=== PATIENT | female | born 1940 | race Caucasian/White ===

== ENCOUNTER 2018-05-19 14:22 | Inpatient (IN) ==
[2018-05-21] MEDS ORDERED: Nitroglycerin 0.4 MG TAB.SUBL SL PRN (18:23)
[2018-05-21] MEDS: *HR* HYDROcodone/Acet 10/325 mg TABLET PO PRN (18:55)
[2018-05-22] MEDS: *HR* HYDROcodone/Acet 10/325 mg TABLET PO PRN ×4 (00:39→21:21)
[2018-05-22 05:31] LABS: Basophils % 0.2 %; Eosinophils # 0.6 K/mcL (0.0-0.6); Eosinophils % 3.4 %; Hematocrit 25.5 % (35.3-44.9); Hemoglobin 8.1 g/dL (11.5-15.4); Immature Granulocytes % 0.9 % (0-4); Lymphocytes # 1.7 K/mcL (0.6-4.6); Lymphocytes % 10.5 %; Mean Corpuscular HGB Conc 31.8 g/dL (31.6-35.5); Mean Corpuscular Hemoglobin 28.6 pg (28.0-33.3); Mean Corpuscular Volume 90.1 fL (83.0-100.0); Mean Platelet Volume 9.1 fL (9.4-12.4); Monocytes # 1.5 K/mcL (0.0-1.3); Monocytes % 9.1 %; Platelet Count 462 K/mcL (140-400); Red Blood Count 2.83 M/mcL (3.82-4.97); Red Cell Distribution Width 15.3 % (11.5-14.5); Segmented Neutrophils % 75.9 %
[2018-05-22 05:33] LABS: Neutrophils # 12.5 K/mcL (1.6-8.9)
[2018-05-22 05:38] LABS: INR 1.4; Prothrombin Time 16.2 Seconds (9.4-12.1)
[2018-05-22 05:40] LABS: Activated Partial Thrombo Time 30.4 Seconds (26.0-36.0)
[2018-05-22 05:48] LABS: BUN/Creatinine Ratio 23 (6-26); Blood Urea Nitrogen 15 mg/dL (8-23); Carbon Dioxide 25 mEq/L (23-29); Chloride 104 mEq/L (98-107); Glucose 99 mg/dL (70-105); Osmolality,Calculated 285 (280-300); Potassium 3.6 mEq/L (3.5-5.1); Sodium 137 mEq/L (136-145); eGFR For Non-African Americans > 60 (> 60)
[2018-05-22] MEDS: Aspirin Enteric Coated 81 MG Tablet PO SCH (08:49)
[2018-05-22] MEDS: hydroCHLOROthiazide 25 MG TABLET PO SCH (08:49)
[2018-05-22] MEDS: Isosorbide MONOnitrate (24 HR) 60 MG TAB.ER.24H PO SCH (08:49)
[2018-05-22] MEDS: *HR* Amiodarone 200 MG TABLET PO SCH (08:53)
[2018-05-22] MEDS: *HR* LORazepam 0.5 MG TABLET PO PRN (14:38)
--- NOTE | 2018-05-22 19:04 | Internal Med History&Physical ---
Date of Encounter: 05/22/18 Time of Encounter: 15:00 Assessment and Plan (1) Acute blood loss anemia Current visit: No Status: Acute (2) CAD (coronary artery disease) Current visit: No Status: Acute Qualifiers: Coronary Disease-Associated Artery/Lesion type: [place] artery [place] vs. transplanted heart: [place] heart Associated angina: with unstable angina Qualified Code(s): I25.110 - Atherosclerotic heart disease of [place] coronary artery with unstable angina pectoris (3) Chest pain Current visit: No Status: Acute Qualifiers: Chest pain type: chest pain due to myocardial ischemia Ischemic chest pain type: stable angina pectoris Qualified Code(s): I20.8 - Other forms of angina pectoris (4) Essential hypertension Current visit: No Status: Chronic Internal Medicine - H&P: HPI Chief complaint: PT was admit from hospital for rehab. She is post 4 V cabg on 05-14. History of present illness: Ms. Fajardo is a 77 year old female who was admit post cabg 4 V she had unstable angina there on 05-14 and underwent cabg. She had previous hx stenting. She did well post op except svt and was put on amiodarone. She did well on that and is still on 200 mg she currently is chest pain free. surgical site mild pain. no sob she is eating she had hx of allergy to statin but tolerated crestor fine and so is on that she had hypertension and is stable. Assesments and plans general weakness and debility - deconditioning/ will need rehab per plans CAD post CABG 4 V hx SVT surgery 04-20-18 stable continue current medications including amiodarone crestor anemia hx of blood loss anemia stable hb 8.1 will recheck no current bleeding will check b12 AND IRON hypertension stable continue current meds hyperlipidemia stable continue crestor Past Med Surg Social Fam HX - Past Medical History Medical history: coronary artery disease, GERD, hyperlipidemia, hypertension, myocardial infarction, other Additional medical history: gastritis. peptic ulcer disease Psychiatric history: no psych history - Past Surgical History Surgical History: appendectomy, breast surgery, carotid endarterectomy, dioni ract, cholecystectomy, hysterectomy, other Additional surgical history: pericardial window, hemmorrhoid surgery - Social History Smoking Status: Never smoker Smokeless Tobacco Status: No Alcohol use: none Drug use: none - Family History Father Hx Family Cardiac Disorders: Yes (bypass surgery) Internal Medicine - H&P: Meds Aspirin [Adult Low Dose Aspirin EC] 81 mg PO DAILY 10/05/15 [History] Carvedilol [Coreg] 6.25 mg PO BID 10/05/15 [History] Citalopram Hydrobromide [Celexa] 40 mg PO DAILY 10/05/15 [History] Clopidogrel [Plavix] 75 mg PO DAILY 10/05/15 [History] Isosorbide MONOnitrate (24 HR) [Imdur] 120 mg PO DAILY 10/05/15 [History] Nitroglycerin [Nitrostat] 0.4 mg SL Q3-5MIN PRN 10/05/15 [History] hydroCHLOROthiazide [Hydrochlorothiazide] 12.5 mg PO DAILY 10/05/15 [History] Acetaminophen [Tylenol] 650 mg PO Q6HR PRN tablet 07/21/17 [Rx] Zolpidem [Ambien] 10 mg PO HS PRN #10 tablet 07/21/17 [Rx] Albuterol Sulfate [Ventolin Hfa] 2 puff IH Q6H PRN 05/12/18 [History] LORazepam [Ativan] 0.5 mg PO DAILY PRN 05/12/18 [History] Omeprazole [PriLOSEC] 20 mg PO TID 05/12/18 [History] Amiodarone [Cordarone] 200 mg PO DAILY #30 tablet 05/21/18 [Rx] HYDROcodone/Acet 10/325 mg [[place] 10-325 mg] 1 each PO Q6H PRN 7 Days #20 tablet 05/21/18 [Rx] Rosuvastatin [Crestor] 40 mg PO HS #30 tablet 05/21/18 [Rx] Allergy/AdvReac Type Severity Reaction Status Date / Time acebutolol Allergy Swelling Verified 05/12/18 06:35 of Lip/Tongue/Throat alprazolam [From Xanax] Allergy Hallucinati Verified 05/12/18 06:35 ng Penicillins Allergy Swelling Verified 05/12/18 06:35 of Lip/Tongue/Throat Sulfa (Sulfonamide Allergy Swelling Verified 05/12/18 06:35 Antibiotics) of Lip/Tongue/Throat JOVANNI Inhibitors AdvReac Swelling Verified 05/12/18 06:35 of Lip/Tongue/Throat atorvastatin [From Lipitor] AdvReac Muscle Pain Verified 05/12/18 06:51 diltiazem AdvReac Hypotension Verified 05/12/18 06:35 Erythromycin Base AdvReac Diarrhea Verified 05/12/18 06:35 [From Erythrocin] ezetimibe [From Zetia] AdvReac See Verified 05/12/18 06:35 Comments Hydromorphone [From Dilaudid] AdvReac See Verified 05/12/18 06:35 Comments melatonin AdvReac Rash Verified 05/12/18 06:35 Oxycodone AdvReac See Verified 05/12/18 06:35 Comments pravastatin [From Pravachol] AdvReac Muscle Pain Verified 05/12/18 06:51 ranolazine [From Ranexa] AdvReac Difficulty Verified 05/12/18 06:35 Breathing Lciqkro-Cuu-Jku Reductase AdvReac See Verified 05/12/18 06:35 Inhibitor Comments [Statins] ROS unobtainable: other All Systems PM: A 10-system review of systems was performed and is negative for pertinent findings except as documented above in the HPI. Review of systems: as per hpi - Constitutional Vitals: Temp Pulse Resp BP Pulse Ox 98.0 F 72 16 124/72 96 05/22/18 07:40 05/22/18 16:47 05/22/18 16:47 05/22/18 16:47 05/22/18 16:47 General appearance: Present: A&O X 3, no acute distress - Respiratory Respiratory exam: Present: decreased breath sounds, wheezes - Cardiovascular Cardiovascular exam: Present: clicks, distant heart sounds - GI/Abdominal GI/Abdominal exam: Present: diminished bowel sounds, distended, tenderness Internal Med - H&P Results - Labs CBC & Chem 7: 05/22/18 05:15 05/22/18 05:15 Labs: Short CBC 05/22/18 Range/Units 05:15 WBC 16.5 H (4.3-11.1) K/mcL Hgb 8.1 L (11.5-15.4) g/dL Hct 25.5 L (35.3-44.9) % Plt Count 462 H (140-400) K/mcL Neutrophils # 12.5 H (1.6-8.9) K/mcL BMP 05/22/18 05:15 Sodium 137 Potassium 3.6 Chloride 104 Carbon Dioxide 25 BUN 15 Creatinine 0.64 Glucose 99 Calcium 9.0 Physicians: Godwin Shetty MD Consult Comment: Thank you for the consult. Call [facility] with questions or concerns.
[2018-05-23] MEDS: *HR* HYDROcodone/Acet 10/325 mg TABLET PO PRN ×3 (04:01→18:21)
[2018-05-23 05:31] LABS: Hematocrit 23.1 % (35.3-44.9); Hemoglobin 7.3 g/dL (11.5-15.4); Mean Corpuscular HGB Conc 31.6 g/dL (31.6-35.5); Mean Corpuscular Hemoglobin 28.5 pg (28.0-33.3); Mean Corpuscular Volume 90.2 fL (83.0-100.0); Mean Platelet Volume 9.1 fL (9.4-12.4); Platelet Count 489 K/mcL (140-400); Red Blood Count 2.56 M/mcL (3.82-4.97); Red Cell Distribution Width 15.3 % (11.5-14.5)
[2018-05-23 05:44] LABS: BUN/Creatinine Ratio 21 (6-26); Blood Urea Nitrogen 14 mg/dL (8-23); Calcium 9.1 mg/dL (8.6-10.3); Carbon Dioxide 24 mEq/L (23-29); Chloride 103 mEq/L (98-107); Glucose 102 mg/dL (70-105); Osmolality,Calculated 285 (280-300); Potassium 3.2 mEq/L (3.5-5.1); Sodium 137 mEq/L (136-145); eGFR For Non-African Americans > 60 (> 60)
[2018-05-23 07:56] LABS: Bilirubin,Urine Negative (Negative); Blood,Urine Trace-lysed (Negative); Clarity,Urine Slightly Cloudy (Clear); Color,Urine Yellow (Yellow); Glucose,Urine (UA) Normal (Normal); Ketones,Urine 40 mg/dL (Negative); Leukocyte Esterase,Urine Small (Negative); Nitrite,Urine Positive (Negative); PH,Urine 6.5 pH Units (5.0-8.0); Protein,Urine 30 mg/dL (Neg-Trace); Urobilinogen,Urine Normal (Normal)
[2018-05-23] MEDS: Isosorbide MONOnitrate (24 HR) 60 MG TAB.ER.24H PO SCH (08:33)
[2018-05-23] MEDS: hydroCHLOROthiazide 25 MG TABLET PO SCH (08:34)
[2018-05-23] MEDS: *HR* Amiodarone 200 MG TABLET PO SCH (08:34)
[2018-05-23] MEDS: Aspirin Enteric Coated 81 MG Tablet PO SCH (08:34)
[2018-05-23 10:15] LABS: RBC,Urine 0-3 per hpf (0-3); Squamous Epithelial Cell,Urine Moderate per lpf (None-Few); WBC,Urine TNTC per hpf (0-3)
[2018-05-23 10:16] LABS: Bacteria,Urine Many per hpf (None-Few)
--- NOTE | 2018-05-23 15:15 | Internal Med Progress Note ---
Date of Encounter: 05/23/18 Time of Encounter: 15:45 - Assessment and plan (1) Acute blood loss anemia Current Visit: No Status: Acute (2) CAD (coronary artery disease) Current Visit: No Status: Acute Qualifiers: Coronary Disease-Associated Artery/Lesion type: [place] artery [place] vs. transplanted heart: [place] heart Associated angina: with unstable angina Qualified Code(s): I25.110 - Atherosclerotic heart disease of [place] coronary artery with unstable angina pectoris (3) Chest pain Current Visit: No Status: Acute Qualifiers: Chest pain type: chest pain due to myocardial ischemia Ischemic chest pain type: stable angina pectoris Qualified Code(s): I20.8 - Other forms of angina pectoris (4) Essential hypertension Current Visit: No Status: Chronic - Subjective Interval history: Assessment and Plan (1) Acute blood loss anemia Current visit: No Status: Acute (2) CAD (coronary artery disease) Current visit: No Status: Acute Qualifiers: Coronary Disease-Associated Artery/Lesion type: [place] artery [place] vs. transplanted heart: [place] heart Associated angina: with unstable angina Qualified Code(s): I25.110 - Atherosclerotic heart disease of [place] coronary artery with unstable angina pectoris CAD post CABG 4 V hx SVT surgery 04-20-18 stable continue current medications including amiodarone crestor K was low replaced recheck (3) Chest pain Current visit: No Status: resolved Qualifiers: Chest pain type: chest pain due to myocardial ischemia Ischemic chest pain type: stable angina pectoris Qualified Code(s): I20.8 - Other forms of angina pectoris no current chest pain (4) Essential hypertension Current visit: No Status: Chronic (5) deconditioning will continue rehab plans Interval hx stable overnight no cp PT was admit from hospital for rehab. She is post 4 V cabg on 05-14. she had unstable angina there on 05-14 and underwent cabg. She had previous hx stenting. She did well post op except svt and was put on amiodarone. She did well on that and is still on 200 mg no palpitation she currently is chest pain free. surgical site mild pain. no sob she is eating she had hx of allergy to statin but tolerated crestor fine and so is on that she had hypertension and is stable. Aspirin [Adult Low Dose Aspirin EC] 81 mg PO DAILY 10/05/15 [History] Carvedilol [Coreg] 6.25 mg PO BID 10/05/15 [History] Citalopram Hydrobromide [Celexa] 40 mg PO DAILY 10/05/15 [History] Clopidogrel [Plavix] 75 mg PO DAILY 10/05/15 [History] Isosorbide MONOnitrate (24 HR) [Imdur] 120 mg PO DAILY 10/05/15 [History] Nitroglycerin [Nitrostat] 0.4 mg SL Q3-5MIN PRN 10/05/15 [History] hydroCHLOROthiazide [Hydrochlorothiazide] 12.5 mg PO DAILY 10/05/15 [History] Acetaminophen [Tylenol] 650 mg PO Q6HR PRN tablet 07/21/17 [Rx] Zolpidem [Ambien] 10 mg PO HS PRN #10 tablet 07/21/17 [Rx] Albuterol Sulfate [Ventolin Hfa] 2 puff IH Q6H PRN 05/12/18 [History] LORazepam [Ativan] 0.5 mg PO DAILY PRN 05/12/18 [History] Omeprazole [PriLOSEC] 20 mg PO TID 05/12/18 [History] Amiodarone [Cordarone] 200 mg PO DAILY #30 tablet 05/21/18 [Rx] HYDROcodone/Acet 10/325 mg [[place] 10-325 mg] 1 each PO Q6H PRN 7 Days #20 tablet 05/21/18 [Rx] Rosuvastatin [Crestor] 40 mg PO HS #30 tablet 05/21/18 [Rx] 3 Allergy/AdvReac Type Severity Reaction Status Date / Time acebutolol Allergy Swelling Verified 05/12/18 06:35 of Lip/Tongue/Throat alprazolam [From Xanax] Allergy Hallucinati Verified 05/12/18 06:35 ng Penicillins Allergy Swelling Verified 05/12/18 06:35 of Lip/Tongue/Throat Sulfa (Sulfonamide Allergy Swelling Verified 05/12/18 06:35 Antibiotics) of Lip/Tongue/Throat JOVANNI Inhibitors AdvReac Swelling Verified 05/12/18 06:35 of Lip/Tongue/Throat atorvastatin [From Lipitor] AdvReac Muscle Pain Verified 05/12/18 06:51 diltiazem AdvReac Hypotension Verified 05/12/18 06:35 Erythromycin Base AdvReac Diarrhea Verified 05/12/18 06:35 [From Erythrocin] ezetimibe [From Zetia] AdvReac See Verified 05/12/18 06:35 Comments Hydromorphone [From Dilaudid] AdvReac See Verified 05/12/18 06:35 Comments melatonin AdvReac Rash Verified 05/12/18 06:35 Oxycodone AdvReac See Verified 05/12/18 06:35 Comments pravastatin [From Pravachol] AdvReac Muscle Pain Verified 05/12/18 06:51 ranolazine [From Ranexa] AdvReac Difficulty Verified 05/12/18 06:35 Breathing Sipgygz-Qgy-Itp Reductase AdvReac See Verified 05/12/18 06:35 Inhibitor Comments [Statins] - Constitutional Vitals: Temp Pulse Resp BP Pulse Ox 98.0 F 72 16 124/72 96 05/22/18 07:40 05/22/18 16:47 05/22/18 16:47 05/22/18 16:47 05/22/18 16:47 General appearance: Present: A&O X 3, no acute distress - Respiratory Respiratory exam: Present: decreased breath sounds, wheezes - Cardiovascular Cardiovascular exam: Present: clicks, distant heart sounds - GI/Abdominal GI/Abdominal exam: Present: diminished bowel sounds, distended, tenderness - Constitutional Vitals: Temp Pulse Resp BP Pulse Ox 98.3 F 77 17 153/77 93 05/23/18 07:54 05/23/18 07:54 05/23/18 07:54 05/23/18 07:54 05/23/18 07:54 General appearance: Present: A&O X 3, no acute distress Internal Medicine: Result - Labs CBC & Chem 7: 05/23/18 05:09 05/23/18 05:09 Labs: Short CBC 05/23/18 Range/Units 05:09 WBC 16.1 H (4.3-11.1) K/mcL Hgb 7.3 L (11.5-15.4) g/dL Hct 23.1 L (35.3-44.9) % Plt Count 489 H (140-400) K/mcL BMP 05/23/18 05:09 Sodium 137 Potassium 3.2 L Chloride 103 Carbon Dioxide 24 BUN 14 Creatinine 0.67 Glucose 102 Calcium 9.1 Urine 05/23/18 Range/Units 07:00 Urine Color Yellow (Yellow) Urine Clarity Slightly Cloudy A (Clear) Urine pH 6.5 (5.0-8.0) pH Units Ur Specific [place] 1.020 (1.010-1.025) Urine Protein 30 H (Neg-Trace) mg/dL Urine Glucose (UA) Normal (Normal) mg/dL - ABG Interpretation ABG results: PT/INR, D-dimer PT 16.2 Seconds (9.4-12.1) H 05/22/18 05:15 Consult Discharge Plan - Plan Referrals: Ismael Clay MD [Primary Care Provider] -
[2018-05-23 19:01] LABS: % Iron Saturation 4 % (15-50); Iron 13 mcg/dL (50-170); Transferrin 210 mg/dL (203-362)
[2018-05-23] MEDS: Acetaminophen 325 MG TABLET PO PRN (21:06)
[2018-05-24] MEDS: *HR* HYDROcodone/Acet 10/325 mg TABLET PO PRN ×3 (04:00→20:03)
[2018-05-24 05:48] LABS: Basophils # 0.1 K/mcL (0.0-0.2); Basophils % 0.3 %; Eosinophils # 0.4 K/mcL (0.0-0.6); Eosinophils % 2.7 %; Hematocrit 22.9 % (35.3-44.9); Hemoglobin 7.3 g/dL (11.5-15.4); Immature Granulocytes % 1.1 % (0-4); Lymphocytes # 1.3 K/mcL (0.6-4.6); Lymphocytes % 8.3 %; Mean Corpuscular HGB Conc 31.9 g/dL (31.6-35.5); Mean Corpuscular Hemoglobin 28.5 pg (28.0-33.3); Mean Corpuscular Volume 89.5 fL (83.0-100.0); Monocytes # 1.4 K/mcL (0.0-1.3); Monocytes % 8.9 %; Neutrophils # 12.7 K/mcL (1.6-8.9); Nucleated Red Blood Cells 0.2 /100 WBC (0); Platelet Count 534 K/mcL (140-400); Red Blood Count 2.56 M/mcL (3.82-4.97); Red Cell Distribution Width 15.3 % (11.5-14.5); Segmented Neutrophils % 78.7 %
[2018-05-24 06:02] LABS: BUN/Creatinine Ratio 21 (6-26); Blood Urea Nitrogen 14 mg/dL (8-23); Carbon Dioxide 24 mEq/L (23-29); Chloride 104 mEq/L (98-107); Glucose 106 mg/dL (70-105); Osmolality,Calculated 289 (280-300); Potassium 3.7 mEq/L (3.5-5.1); Sodium 139 mEq/L (136-145); eGFR For Non-African Americans > 60 (> 60)
[2018-05-24] MEDS: Isosorbide MONOnitrate (24 HR) 60 MG TAB.ER.24H PO SCH (07:59)
[2018-05-24] MEDS: hydroCHLOROthiazide 25 MG TABLET PO SCH (07:59)
[2018-05-24] MEDS: Aspirin Enteric Coated 81 MG Tablet PO SCH (08:00)
[2018-05-24] MEDS: *HR* Amiodarone 200 MG TABLET PO SCH (08:00)
[2018-05-24] MEDS: Acetaminophen 325 MG TABLET PO PRN ×2 (08:07→16:30)
--- NOTE | 2018-05-24 10:52 | Internal Med Progress Note ---
Addendum entered and electronically signed by Kathya Sutton 05/24/18 17:00: For this encounter, I have reviewed the CORRESPONDENCE REVIEW CLERK documentation, treatment plan, and medical decision making; and I have had face to face time with this patient. Original Note: Date of Encounter: 05/24/18 Time of Encounter: 10:50 - Assessment and plan (1) CAD (coronary artery disease) Current Visit: Yes Status: Acute Assessment and plan: Status post CABG. Denies chest pain. Continue amiodarone. Follow up with junior software developer as scheduled. Qualifiers: Coronary Disease-Associated Artery/Lesion type: [place] artery [place] vs. transplanted heart: [place] heart Associated angina: with unstable angina Qualified Code(s): I25.110 - Atherosclerotic heart disease of [place] coronary artery with unstable angina pectoris (2) Acute blood loss anemia Current Visit: Yes Status: Acute Assessment and plan: Hemoglobin stable at 7.3. Will repeat tomorrow. (3) Essential hypertension Current Visit: Yes Status: Chronic Assessment and plan: Controlled with current medication. Monitor blood pressure. - Time Spent With Patient less than 15 minutes - Subjective Interval history: Patient participating well with therapy. Denies pain. States appetite is decreased that she does not like the food. Urine culture is pending. Patient states last bowel movement was this morning. Denies fever, chills, nausea vomiting or diarrhea. - Constitutional Vitals: Temp Pulse Resp BP Pulse Ox 98.2 F 70 16 143/63 94 05/24/18 07:05 05/24/18 07:05 05/24/18 07:05 05/24/18 07:05 05/24/18 07:05 General appearance: Present: A&O X 3, no acute distress - Head Head exam: Present: atraumatic, normocephalic - Eye Eye exam: Present: PERRL, conjuntiva pink, sclera anicteric Pupils: Present: PERRL - Neck Neck exam general surgery: Present: supple, trachea midline. Absent: lymphadenopathy - Respiratory Respiratory exam: Present: CTAB. Absent: accessory muscle use, rales, rhonchi, wheezes - Cardiovascular Cardiovascular exam: Present: RRR, +S1, +S2. Absent: diastolic murmur, gallop, rubs, systolic murmur - GI/Abdominal GI/Abdominal exam: Present: normal bowel sounds, soft, no peritoneal signs. Absent: distended, tenderness - Extremities Exam Extremities exam: Present: warm, radial pulses palpable and symmetrical. Absent: calf tenderness, cyanotic, pedal edema - [place] Comments: Sternal incision healing. No drainage. - Neurological Exam Neurological exam: Present: CN II-XII intact, oriented X3, no focal deficits. Absent: pronater drift, facial droop, speech deficit - Skin Skin exam: Present: dry, intact Internal Medicine: Result - Labs CBC & Chem 7: 05/24/18 05:25 05/24/18 05:25 Labs: Short CBC 05/24/18 Range/Units 05:25 WBC 16.1 H (4.3-11.1) K/mcL Hgb 7.3 L (11.5-15.4) g/dL Hct 22.9 L (35.3-44.9) % Plt Count 534 H (140-400) K/mcL Neutrophils # 12.7 H (1.6-8.9) K/mcL BMP 05/24/18 05:25 Sodium 139 Potassium 3.7 Chloride 104 Carbon Dioxide 24 BUN 14 Creatinine 0.68 Glucose 106 H Calcium 9.0 - ABG Interpretation ABG results: PT/INR, D-dimer PT 16.2 Seconds (9.4-12.1) H 05/22/18 05:15 Consult Discharge Plan - Plan Referrals: Ismael Clay MD [Primary Care Provider] -
[2018-05-24] MEDS: *HR* LORazepam 0.5 MG TABLET PO PRN (14:33)
--- NOTE | 2018-05-24 15:25 | Electrocardiograph Report ---
[address] [address] Test Date: 2018-05-22 Pat Name: Cathy Fajardo Department: 2001 Room: 102 Gender: F Pharmacy Data Analyst: : 1940 Requested By: Kathya Sutton Order Number: [id number] Reading MD: Keiko Glass Measurements Intervals [place] Rate: 76 P: 50 NH: 126 QRS: 3 QRSD: 82 T: -27 QT: 387 QTc: 417 Interpretive Statements SINUS RHYTHM WITH OCCASIONAL VENTRICULAR PREMATURE COMPLEXES WITH OCCASIONAL SUPRAVENTRICULAR PREMATURE COMPLEXES LEFT ATRIAL ENLARGEMENT NONSPECIFIC ST-WAVE ABNORMALITY Electronically Signed On 05-24-2018 15:23:58 EST by Keiko Glass
[2018-05-25] MEDS: *HR* HYDROcodone/Acet 10/325 mg TABLET PO PRN ×3 (04:00→17:52)
[2018-05-25 05:47] LABS: Basophils # 0.1 K/mcL (0.0-0.2); Basophils % 0.4 %; Eosinophils # 0.4 K/mcL (0.0-0.6); Eosinophils % 2.5 %; Hemoglobin 7.5 g/dL (11.5-15.4); Immature Granulocytes % 0.8 % (0-4); Lymphocytes # 1.5 K/mcL (0.6-4.6); Lymphocytes % 8.7 %; Mean Corpuscular HGB Conc 31.3 g/dL (31.6-35.5); Mean Corpuscular Hemoglobin 28.4 pg (28.0-33.3); Mean Corpuscular Volume 90.9 fL (83.0-100.0); Monocytes # 1.3 K/mcL (0.0-1.3); Monocytes % 7.8 %; Neutrophils # 13.4 K/mcL (1.6-8.9); Nucleated Red Blood Cells 0.1 /100 WBC (0); Platelet Count 624 K/mcL (140-400); Red Blood Count 2.64 M/mcL (3.82-4.97); Red Cell Distribution Width 15.5 % (11.5-14.5); Segmented Neutrophils % 79.8 %
[2018-05-25 06:03] LABS: BUN/Creatinine Ratio 20 (6-26); Blood Urea Nitrogen 14 mg/dL (8-23); Carbon Dioxide 23 mEq/L (23-29); Chloride 105 mEq/L (98-107); Glucose 100 mg/dL (70-105); Osmolality,Calculated 285 (280-300); Potassium 3.5 mEq/L (3.5-5.1); Sodium 137 mEq/L (136-145); eGFR For Non-African Americans > 60 (> 60)
[2018-05-25] MEDS: Isosorbide MONOnitrate (24 HR) 60 MG TAB.ER.24H PO SCH (08:52)
[2018-05-25] MEDS: Aspirin Enteric Coated 81 MG Tablet PO SCH (08:52)
[2018-05-25] MEDS: hydroCHLOROthiazide 25 MG TABLET PO SCH (08:52)
[2018-05-25] MEDS: Acetaminophen 325 MG TABLET PO PRN ×2 (08:52→14:59)
[2018-05-25] MEDS: *HR* Amiodarone 200 MG TABLET PO SCH (08:52)
--- NOTE | 2018-05-25 12:10 | Internal Med Progress Note ---
Addendum entered and electronically signed by Kathya Sutton 05/25/18 13:53: I have personally performed a face to face evaluation on this patient. I have reviewed and agree with the care plan. Original Note: Date of Encounter: 05/25/18 Time of Encounter: 12:08 - Assessment and plan (1) CAD (coronary artery disease) Current Visit: Yes Status: Acute Assessment and plan: Status post CABG. Denies chest pain. Continue amiodarone. Follow up with zigzag appliquer as scheduled. Qualifiers: Coronary Disease-Associated Artery/Lesion type: [place] artery [place] vs. transplanted heart: [place] heart Associated angina: with unstable angina Qualified Code(s): I25.110 - Atherosclerotic heart disease of [place] coronary artery with unstable angina pectoris (2) Acute blood loss anemia Current Visit: Yes Status: Acute Assessment and plan: stable. monitor. (3) Essential hypertension Current Visit: Yes Status: Chronic Assessment and plan: Controlled with current medication. Monitor blood pressure. - Time Spent With Patient less than 15 minutes - Subjective Interval history: Patient participating well with therapy, ambulating with SBA without device. Denies pain, fever, chills, NVD. does report urinary frequency but no other urinary symptoms. Urine culture is pending. Patient states last bowel movement was this morning. Denies fever, chills, nausea vomiting or diarrhea. - Constitutional Vitals: Temp Pulse Resp BP Pulse Ox 98.0 F 71 16 150/73 95 05/25/18 07:00 05/25/18 07:00 05/25/18 07:00 05/25/18 07:00 05/25/18 07:00 General appearance: Present: cooperative, A&O X 3, no acute distress, answers questions appropriately - Head Head exam: Present: atraumatic, normocephalic - Eye Eye exam: Present: PERRL, conjuntiva pink, sclera anicteric Pupils: Present: PERRL - Neck Neck exam general surgery: Present: supple, trachea midline. Absent: lymphad enopathy - Respiratory Respiratory exam: Present: CTAB. Absent: accessory muscle use, rales, rhonchi, wheezes - Cardiovascular Cardiovascular exam: Present: RRR, +S1, +S2. Absent: diastolic murmur, gallop, rubs, systolic murmur - GI/Abdominal GI/Abdominal exam: Present: normal bowel sounds, soft, no peritoneal signs. Absent: distended, tenderness - Extremities Exam Extremities exam: Present: warm, radial pulses palpable and symmetrical. Absent: calf tenderness, cyanotic, pedal edema - Neurological Exam Neurological exam: Present: CN II-XII intact, oriented X3, no focal deficits. Absent: pronater drift, facial droop, speech deficit - Skin Skin exam: Present: dry, intact Internal Medicine: Result - Labs CBC & Chem 7: 05/25/18 05:20 05/25/18 05:20 Labs: Short CBC 05/25/18 Range/Units 05:20 WBC 16.8 H (4.3-11.1) K/mcL Hgb 7.5 L (11.5-15.4) g/dL Hct 24.0 L (35.3-44.9) % Plt Count 624 H (140-400) K/mcL Neutrophils # 13.4 H (1.6-8.9) K/mcL BMP 05/25/18 05:20 Sodium 137 Potassium 3.5 Chloride 105 Carbon Dioxide 23 BUN 14 Creatinine 0.69 Glucose 100 Calcium 9.0 - ABG Interpretation ABG results: PT/INR, D-dimer PT 16.2 Seconds (9.4-12.1) H 05/22/18 05:15 Consult Discharge Plan - Plan Referrals: Ismael Clay MD [Primary Care Provider] -
[2018-05-25] MEDS: traMADol 50 MG TABLET PO PRN (20:29)
[2018-05-25] MEDS: Psyllium 1 PACKET POWD.PACK PO SCH (20:32)
[2018-05-26] MEDS: *HR* HYDROcodone/Acet 10/325 mg TABLET PO PRN ×2 (01:06→07:16)
[2018-05-26 05:26] LABS: Hematocrit 24.9 % (35.3-44.9); Hemoglobin 7.7 g/dL (11.5-15.4); Mean Corpuscular HGB Conc 30.9 g/dL (31.6-35.5); Mean Corpuscular Hemoglobin 28.1 pg (28.0-33.3); Mean Corpuscular Volume 90.9 fL (83.0-100.0); Mean Platelet Volume 8.7 fL (9.4-12.4); Platelet Count 681 K/mcL (140-400); Red Blood Count 2.74 M/mcL (3.82-4.97); Red Cell Distribution Width 15.6 % (11.5-14.5)
[2018-05-26 06:37] VITALS: BP 155/87
[2018-05-26] MEDS: Aspirin Enteric Coated 81 MG Tablet PO SCH (08:21)
[2018-05-26] MEDS: *HR* Amiodarone 200 MG TABLET PO SCH (08:21)
[2018-05-26] MEDS: Isosorbide MONOnitrate (24 HR) 60 MG TAB.ER.24H PO SCH (08:21)
[2018-05-26] MEDS: hydroCHLOROthiazide 25 MG TABLET PO SCH (08:22)
[2018-05-26] MEDS: Psyllium 1 PACKET POWD.PACK PO SCH (08:25)
--- NOTE | 2018-05-26 10:28 | Discharge Summary ---
Addendum entered and electronically signed by Kathya Sutton 05/26/18 11:59: I have personally performed a face to face evaluation on this patient. I have reviewed and agree with the care plan. Original Note: Orders not resulted at time of discharge: Pending orders 05/27/18 04:00 CBC no Diff [Complete Blood Count w/o Diff] [HEME] AM 0400 05/31/18 04:00 Basic Metabolic Panel MO Complete Blood Count [HEME] MO 06/07/18 04:00 Basic Metabolic Panel MO Complete Blood Count [HEME] MO 06/14/18 04:00 Basic Metabolic Panel MO Complete Blood Count [HEME] MO 06/21/18 04:00 Basic Metabolic Panel MO Complete Blood Count [HEME] MO 06/28/18 04:00 Basic Metabolic Panel MO Complete Blood Count [HEME] MO 07/05/18 04:00 Basic Metabolic Panel MO Complete Blood Count [HEME] MO 07/12/18 04:00 Basic Metabolic Panel MO Complete Blood Count [HEME] MO Date of Encounter: 05/26/18 Time of Encounter: 10:26 - Discharge Diagnosis (1) CAD (coronary artery disease) Priority: Primary Status: Acute Comments: Stable. Denies chest pain. Continue current medication. Follow up with cardiology as scheduled. Continue PT. Start cardiac rehab when cleared by cardiology. Qualifiers: Coronary Disease-Associated Artery/Lesion type: [place] artery [place] vs. transplanted heart: [place] heart Associated angina: with unstable angina Qualified Code(s): I25.110 - Atherosclerotic heart disease of [place] coronary artery with unstable angina pectoris (2) Acute blood loss anemia Priority: Secondary Status: Acute Comments: Stable. Hemoglobin 7.7. Patient asymptomatic. (3) Essential hypertension Priority: Secondary Status: Chronic Comments: Controlled with current medication. Monitor blood pressure. Follow up with PCP and cardiology. (4) UTI (urinary tract infection) Priority: Primary Status: Acute Comments: Will start Macrobid. Follow up with PCP. Qualifiers: Urinary tract infection type: site unspecified Hematuria presence: without hematuria Qualified Code(s): N39.0 - Urinary tract infection, site not specified Hospital course: Ms. Fajardo is a 77 year old female discharging to home with after having a CABG. Denies any pain. Ambulating with Walker for longer distance and without device for shorter distances. Patient does have UTI and will be started on Macrobid. Instructed to follow up with cardiology as scheduled and primary care within one week. Discharge discussed with: patient, family, nurse, social work - Time Spent with Patient Total time spent providing and/or coordinating discharge services: Less than 30 minutes - Discharge Medications Home Medications: Aspirin [Adult Low Dose Aspirin EC] 81 mg PO DAILY 10/05/15 [History] Carvedilol [Coreg] 6.25 mg PO BID 10/05/15 [History] Citalopram Hydrobromide [Celexa] 40 mg PO DAILY 10/05/15 [History] Clopidogrel [Plavix] 75 mg PO DAILY 10/05/15 [History] Isosorbide MONOnitrate (24 HR) [Imdur] 120 mg PO DAILY 10/05/15 [History] Nitroglycerin [Nitrostat] 0.4 mg SL Q3-5MIN PRN 10/05/15 [History] hydroCHLOROthiazide [Hydrochlorothiazide] 12.5 mg PO DAILY 10/05/15 [History] Acetaminophen [Tylenol] 650 mg PO Q6HR PRN tablet 07/21/17 [Rx] Zolpidem [Ambien] 10 mg PO HS PRN #10 tablet 07/21/17 [Rx] Albuterol Sulfate [Ventolin Hfa] 2 puff IH Q6H PRN 05/12/18 [History] LORazepam [Ativan] 0.5 mg PO DAILY PRN 05/12/18 [History] Omeprazole [PriLOSEC] 20 mg PO TID 05/12/18 [History] HYDROcodone/Acet 10/325 mg [[place] 10-325 mg] 1 each PO Q6H PRN 7 Days #20 tablet 05/21/18 [Rx] Amiodarone [Cordarone] 200 mg PO DAILY #14 tablet 05/26/18 [Rx] Nitrofurantoin (BID) [Macrobid] 100 mg PO BIDWM #14 capsule 05/26/18 [Rx] Polyethylene Glycol 3350 [MiraLAX] 17 gm PO DAILY powd.pack 05/26/18 [Rx] Psyllium [Metamucil Fiber Singles Packet] 1 packet PO BID powd.pack 05/26/18 [Rx] Rosuvastatin [Crestor] 40 mg PO HS #30 tablet 05/26/18 [Rx] Allergies/Adverse Reactions: Allergy/AdvReac Type Severity Reaction Status Date / Time acebutolol Allergy Swelling Verified 05/12/18 06:35 of Lip/Tongue/Throat alprazolam [From Xanax] Allergy Hallucinati Verified 05/12/18 06:35 ng Penicillins Allergy Swelling Verified 05/12/18 06:35 of Lip/Tongue/Throat Sulfa (Sulfonamide Allergy Swelling Verified 05/12/18 06:35 Antibiotics) of Lip/Tongue/Throat JOVANNI Inhibitors AdvReac Swelling Verified 05/12/18 06:35 of Lip/Tongue/Throat atorvastatin [From Lipitor] AdvReac Muscle Pain Verified 05/12/18 06:51 diltiazem AdvReac Hypotension Verified 05/12/18 06:35 Erythromycin Base AdvReac Diarrhea Verified 05/12/18 06:35 [From Erythrocin] ezetimibe [From Zetia] AdvReac See Verified 05/12/18 06:35 Comments Hydromorphone [From Dilaudid] AdvReac See Verified 05/12/18 06:35 Comments melatonin AdvReac Rash Verified 05/12/18 06:35 Oxycodone AdvReac See Verified 05/12/18 06:35 Comments pravastatin [From Pravachol] AdvReac Muscle Pain Verified 05/12/18 06:51 ranolazine [From Ranexa] AdvReac Difficulty Verified 05/12/18 06:35 Breathing [id number] Reductase AdvReac See Verified 05/12/18 06:35 Inhibitor Comments [Statins] Date of admission: 05/21/18 16:51 Primary care physician: Ismael Clay MD Consults: 05/21/18 18:15 Consult to Occupational Therapy [CONS] Routine Comment: Evaluate, develop and implement POC Reason for Consult: Deconditioning - CABG Does patient have active BEDREST order?: No Is patient medically & hemodynamically stable?: Yes Consult to Physical Therapy [CONS] Routine Comment: Evaluate, develop and implement POC Reason for Consult: Deconditioning - CABG Does patient have active BEDREST order?: No Is patient medically & hemodynamically stable?: Yes Consult to Recreational Therapy [CONS] Routine Comment: Evaluate, develop and implement POC Consult to Consumer Loan Officer [CONS] Routine Reason for SW Consult: Deconditioning - CABG Discharging clinician: Kathya Sutton Anticipated date of discharge: 05/26/18 - Constitutional Vitals: Temp Pulse Resp BP Pulse Ox 98.2 F 74 18 155/87 95 05/26/18 06:28 05/26/18 06:28 05/26/18 06:28 05/26/18 06:28 05/26/18 06:28 General appearance: Present: cooperative, A&O X 3, no acute distress, answers questions appropriately - Head Head exam: Present: atraumatic, normocephalic - Eye Eye exam: Present: PERRL, conjuntiva pink, sclera anicteric Pupils: Present: PERRL - Neck Neck exam general surgery: Present: supple, trachea midline. Absent: lymphadenopathy - Respiratory Respiratory exam: Present: CTAB. Absent: accessory muscle use, rales, rhonchi, wheezes - Cardiovascular Cardiovascular exam: Present: RRR, +S1, +S2. Absent: diastolic murmur, gallop, rubs, systolic murmur - GI/Abdominal GI/Abdominal exam: Present: normal bowel sounds, soft, no peritoneal signs. Absent: distended, tenderness - Extremities Exam Extremities exam: Present: warm, radial pulses palpable and symmetrical. Absent: calf tenderness, cyanotic, pedal edema - Incison Comments: Sternal incision healing and well approximated. No drainage. - Neurological Exam Neurological exam: Present: CN II-XII intact, oriented X3, no focal deficits. Absent: pronater drift, facial droop, speech deficit - Skin Skin exam: Present: dry, intact - Patient Status Disposition: Home, Self-Care Condition: Good Functional capacity at discharge: uses cane/walker Overall status at discharge: patient is progressing back to baseline - Discharge Instructions Instructions: Coronary Artery Bypass Graft (DC), Chronic Hypertension (DC) Follow Up With: Ismael Clay MD [Primary Care Provider] - (Please call to schedule a hospital discharge appointment. ) Luanne Stevens MD [Partnered Physician] - 06/07/18 1:15 pm - Diet and Activity Activity: as per physical therapy, increase activity as tolerated Diet: low fat, low cholesterol
[2018-05-26] MEDS: traMADol 50 MG TABLET PO PRN (12:37)
[2018-05-26] MEDS ORDERED: Nitrofurantoin (BID) 100 MG CAPSULE PO SCH (17:00)
== END 2018-05-26 12:58 | disposition home or self-care (01) | DRG 949 ==
LOC: INPGRE 05-21 16:51

== ENCOUNTER 2022-04-02 14:16 | Inpatient (IN) ==
[2022-04-02] MEDS ORDERED: Nitroglycerin 0.4 MG TAB.SUBL SL PRN (22:01)
[2022-04-03 02:16] LABS: Bilirubin,Urine Negative (Negative); Blood,Urine Small (Negative); Clarity,Urine Slightly Cloudy (Clear); Color,Urine Yellow (Yellow); Glucose,Urine (UA) Normal (Normal); Ketones,Urine Negative (Negative); Leukocyte Esterase,Urine Large (Negative); Nitrite,Urine Negative (Negative); PH,Urine 7.5 pH Units (5.0-8.0); Protein,Urine 30 mg/dL (Neg-Trace); Specific Gravity,Urine 1.015 (1.010-1.025)
[2022-04-03 02:23] LABS: WBC,Urine TNTC per hpf (0-3)
[2022-04-03 02:24] LABS: Bacteria,Urine Few per hpf (None-Few); Squamous Epithelial Cell,Urine Few per hpf (None-Few)
[2022-04-03 05:01] LABS: Basophils # 0.1 K/mcL (0.0-0.2); Basophils % 0.3 %; Eosinophils # 0.2 K/mcL (0.0-0.6); Eosinophils % 0.8 %; Hemoglobin 10.4 g/dL (11.5-15.4); Immature Granulocytes % 2.3 % (0-4); Mean Corpuscular HGB Conc 33.5 g/dL (31.6-35.5); Mean Corpuscular Hemoglobin 33.7 pg (28.0-33.3); Mean Corpuscular Volume 100.3 fL (83.0-100.0); Mean Platelet Volume 9.1 fL (9.4-12.4); Monocytes # 0.8 K/mcL (0.0-1.3); Monocytes % 3.9 %; Neutrophils # 18.1 K/mcL (1.6-8.9); Nucleated Red Blood Cells 0.2 /100 WBC (0); Platelet Count 400 K/mcL (140-400); Red Blood Count 3.09 M/mcL (3.82-4.97); Red Cell Distribution Width 13.3 % (11.5-14.5); Segmented Neutrophils % 87.7 %; White Blood Count 20.6 K/mcL (4.3-11.1)
[2022-04-03 05:59] LABS: BUN/Creatinine Ratio 49 (6-26); Blood Urea Nitrogen 18 mg/dL (8-23); Carbon Dioxide 28 mEq/L (23-29); Chloride 97 mEq/L (98-107); Glucose 144 mg/dL (70-105); Osmolality,Calculated 276 (280-300); Potassium 4.4 mEq/L (3.5-5.1); Sodium 131 mEq/L (136-145)
[2022-04-03] MEDS ORDERED: Multivitamin Liquid 15 ML UDC GTUBE SCH (09:00)
[2022-04-03] MEDS: carvediloL 6.25 MG TABLET GTUBE SCH ×2 (09:27→16:56)
[2022-04-03] MEDS: Cholecalciferol (D-3) 1,000 UNIT (25MCG) TABLET GTUBE SCH (09:27)
[2022-04-03] MEDS: Cyanocobalamin (B-12) 1,000 MCG TABLET GTUBE SCH (09:27)
[2022-04-03] MEDS: hydroCHLOROthiazide 25 MG TABLET GTUBE SCH (09:27)
[2022-04-03] MEDS: Aspirin 81 MG TAB.CHEW GTUBE SCH (09:27)
[2022-04-03] MEDS: Multivitamin Liquid 15 ML UDC GTUBE SCH (16:59)
[2022-04-03] MEDS: *HR* Heparin 5,000 UNIT/ML VIAL SQ SCH (18:27)
[2022-04-04] MEDS: *HR* Heparin 5,000 UNIT/ML VIAL SQ SCH ×2 (05:57→16:06)
[2022-04-04] MEDS: Multivitamin Liquid 15 ML UDC GTUBE SCH (09:48)
[2022-04-04] MEDS: hydroCHLOROthiazide 25 MG TABLET GTUBE SCH (09:48)
[2022-04-04] MEDS: Cyanocobalamin (B-12) 1,000 MCG TABLET GTUBE SCH (09:48)
[2022-04-04] MEDS: Aspirin 81 MG TAB.CHEW GTUBE SCH (09:48)
[2022-04-04] MEDS: carvediloL 6.25 MG TABLET GTUBE SCH ×2 (09:48→15:40)
[2022-04-04] MEDS: Cholecalciferol (D-3) 1,000 UNIT (25MCG) TABLET GTUBE SCH (09:49)
[2022-04-04] MEDS: Nystatin Cream 15 GM TUBE TP SCH ×2 (15:41→19:47)
[2022-04-04] MEDS: Fluconazole 100 MG TABLET GTUBE SCH (15:41)
[2022-04-04] MEDS ORDERED: MOM Conc 10 ML UD.LIQ PO PRN (23:17)
[2022-04-05] MEDS: *HR* Heparin 5,000 UNIT/ML VIAL SQ SCH ×2 (04:39→16:20)
[2022-04-05] MEDS: Cyanocobalamin (B-12) 1,000 MCG TABLET GTUBE SCH (08:14)
[2022-04-05] MEDS: Aspirin 81 MG TAB.CHEW GTUBE SCH (08:14)
[2022-04-05] MEDS: hydroCHLOROthiazide 25 MG TABLET GTUBE SCH (08:14)
[2022-04-05] MEDS: carvediloL 6.25 MG TABLET GTUBE SCH ×2 (08:14→16:20)
[2022-04-05] MEDS: Cholecalciferol (D-3) 1,000 UNIT (25MCG) TABLET GTUBE SCH (08:14)
[2022-04-05] MEDS: Fluconazole 100 MG TABLET GTUBE SCH (08:14)
[2022-04-05] MEDS: Multivitamin Liquid 15 ML UDC GTUBE SCH (08:15)
[2022-04-05] MEDS: Nystatin Cream 15 GM TUBE TP SCH ×3 (08:15→21:00)
[2022-04-06 04:27] LABS: Basophils # 0.1 K/mcL (0.0-0.2); Basophils % 0.3 %; Eosinophils # 0.1 K/mcL (0.0-0.6); Eosinophils % 0.7 %; Hematocrit 28.4 % (35.3-44.9); Hemoglobin 9.2 g/dL (11.5-15.4); Lymphocytes % 5.1 %; Mean Corpuscular HGB Conc 32.4 g/dL (31.6-35.5); Mean Corpuscular Hemoglobin 33.1 pg (28.0-33.3); Mean Corpuscular Volume 102.2 fL (83.0-100.0); Mean Platelet Volume 9.3 fL (9.4-12.4); Monocytes # 1.2 K/mcL (0.0-1.3); Monocytes % 6.2 %; Nucleated Red Blood Cells 0.4 /100 WBC (0); Platelet Count 402 K/mcL (140-400); Red Blood Count 2.78 M/mcL (3.82-4.97); Red Cell Distribution Width 13.9 % (11.5-14.5); Segmented Neutrophils % 86.7 %; White Blood Count 19.1 K/mcL (4.3-11.1)
[2022-04-06 04:29] LABS: Neutrophils # 16.6 K/mcL (1.6-8.9)
[2022-04-06 04:40] LABS: BUN/Creatinine Ratio 61 (6-26); Blood Urea Nitrogen 22 mg/dL (8-23); Calcium 8.5 mg/dL (8.6-10.3); Carbon Dioxide 27 mEq/L (23-29); Chloride 95 mEq/L (98-107); Glucose 125 mg/dL (70-105); Osmolality,Calculated 271 (280-300); Potassium 3.7 mEq/L (3.5-5.1); Sodium 128 mEq/L (136-145)
[2022-04-06] MEDS: *HR* Heparin 5,000 UNIT/ML VIAL SQ SCH ×2 (05:41→16:43)
[2022-04-06] MEDS: Cyanocobalamin (B-12) 1,000 MCG TABLET GTUBE SCH (07:52)
[2022-04-06] MEDS: Fluconazole 100 MG TABLET GTUBE SCH (07:52)
[2022-04-06] MEDS: hydroCHLOROthiazide 25 MG TABLET GTUBE SCH (07:52)
[2022-04-06] MEDS: Aspirin 81 MG TAB.CHEW GTUBE SCH (07:52)
[2022-04-06] MEDS: Cholecalciferol (D-3) 1,000 UNIT (25MCG) TABLET GTUBE SCH (07:53)
[2022-04-06] MEDS: Nystatin Cream 15 GM TUBE TP SCH ×3 (07:53→19:51)
[2022-04-06] MEDS: carvediloL 6.25 MG TABLET GTUBE SCH ×2 (07:53→15:33)
[2022-04-06] MEDS: Multivitamin Liquid 15 ML UDC GTUBE SCH (07:53)
[2022-04-06] MEDS: Sennosides/Docusate Sodium TABLET PO PRN (15:34)
[2022-04-07] MEDS: *HR* LORazepam 0.5 MG TABLET GTUBE PRN ×2 (00:20→20:06)
[2022-04-07] MEDS: *HR* Heparin 5,000 UNIT/ML VIAL SQ SCH ×2 (05:08→17:20)
[2022-04-07 05:12] LABS: BUN/Creatinine Ratio 64 (6-26); Blood Urea Nitrogen 18 mg/dL (8-23); Calcium 8.5 mg/dL (8.6-10.3); Carbon Dioxide 28 mEq/L (23-29); Chloride 93 mEq/L (98-107); Glucose 118 mg/dL (70-105); Osmolality,Calculated 263 (280-300); Potassium 3.6 mEq/L (3.5-5.1); Sodium 125 mEq/L (136-145)
[2022-04-07 05:22] LABS: Basophils % 0.1 %; Eosinophils # 0.2 K/mcL (0.0-0.6); Eosinophils % 1.5 %; Hemoglobin 8.5 g/dL (11.5-15.4); Immature Granulocytes % 1.5 % (0-4); Lymphocytes # 1.1 K/mcL (0.6-4.6); Lymphocytes % 7.1 %; Mean Corpuscular HGB Conc 32.7 g/dL (31.6-35.5); Mean Corpuscular Hemoglobin 33.1 pg (28.0-33.3); Mean Corpuscular Volume 101.2 fL (83.0-100.0); Mean Platelet Volume 9.1 fL (9.4-12.4); Monocytes # 1.1 K/mcL (0.0-1.3); Monocytes % 7.4 %; Neutrophils # 12.3 K/mcL (1.6-8.9); Nucleated Red Blood Cells 0.3 /100 WBC (0); Platelet Count 423 K/mcL (140-400); Red Blood Count 2.57 M/mcL (3.82-4.97); Red Cell Distribution Width 14.2 % (11.5-14.5); Segmented Neutrophils % 82.4 %; White Blood Count 14.9 K/mcL (4.3-11.1)
[2022-04-07] MEDS: Cholecalciferol (D-3) 1,000 UNIT (25MCG) TABLET GTUBE SCH (08:42)
[2022-04-07] MEDS: hydroCHLOROthiazide 25 MG TABLET GTUBE SCH (08:42)
[2022-04-07] MEDS: Aspirin 81 MG TAB.CHEW GTUBE SCH (08:42)
[2022-04-07] MEDS: Fluconazole 100 MG TABLET GTUBE SCH (08:43)
[2022-04-07] MEDS: Nystatin Cream 15 GM TUBE TP SCH ×3 (08:43→20:07)
[2022-04-07] MEDS: carvediloL 6.25 MG TABLET GTUBE SCH ×2 (08:43→15:36)
[2022-04-07] MEDS: Cyanocobalamin (B-12) 1,000 MCG TABLET GTUBE SCH (08:43)
[2022-04-07] MEDS: Multivitamin Liquid 15 ML UDC GTUBE SCH (10:15)
[2022-04-07] MEDS: Sennosides/Docusate Sodium TABLET PO PRN (23:08)
[2022-04-08] MEDS ORDERED: Iopamidol - 370 500 ML MLS IVP ONE (01:10)
[2022-04-08] MEDS: *HR* Heparin 5,000 UNIT/ML VIAL SQ SCH ×2 (04:56→17:30)
[2022-04-08] MEDS: hydroCHLOROthiazide 25 MG TABLET GTUBE SCH (09:22)
[2022-04-08] MEDS: Cyanocobalamin (B-12) 1,000 MCG TABLET GTUBE SCH (09:22)
[2022-04-08] MEDS: Cholecalciferol (D-3) 1,000 UNIT (25MCG) TABLET GTUBE SCH (09:22)
[2022-04-08] MEDS: Aspirin 81 MG TAB.CHEW GTUBE SCH (09:22)
[2022-04-08] MEDS: carvediloL 6.25 MG TABLET GTUBE SCH ×2 (09:22→15:59)
[2022-04-08] MEDS: Nystatin Cream 15 GM TUBE TP SCH ×3 (09:25→21:45)
[2022-04-08 10:20] LABS: Basophils % 0.2 %; Eosinophils # 0.1 K/mcL (0.0-0.6); Eosinophils % 0.6 %; Hematocrit 27.5 % (35.3-44.9); Hemoglobin 9.2 g/dL (11.5-15.4); Immature Granulocytes % 1.6 % (0-4); Lymphocytes # 0.9 K/mcL (0.6-4.6); Lymphocytes % 5.4 %; Mean Corpuscular HGB Conc 33.5 g/dL (31.6-35.5); Mean Corpuscular Hemoglobin 33.7 pg (28.0-33.3); Mean Corpuscular Volume 100.7 fL (83.0-100.0); Mean Platelet Volume 8.8 fL (9.4-12.4); Monocytes # 1.1 K/mcL (0.0-1.3); Monocytes % 6.8 %; Neutrophils # 14.1 K/mcL (1.6-8.9); Nucleated Red Blood Cells 0.2 /100 WBC (0); Platelet Count 459 K/mcL (140-400); Red Blood Count 2.73 M/mcL (3.82-4.97); Red Cell Distribution Width 14.8 % (11.5-14.5); Segmented Neutrophils % 85.4 %; White Blood Count 16.5 K/mcL (4.3-11.1)
[2022-04-08 10:24] LABS: Alanine Aminotransferase 32 Units/L (7-52); Albumin 2.7 g/dL (3.5-5.7); Alkaline Phosphatase 77 Units/L (34-104); Aspartate Amino Transferase 37 Units/L (13-39); BUN/Creatinine Ratio 50 (6-26); Bilirubin,Total 0.4 mg/dL (0.3-1.0); Blood Urea Nitrogen 17 mg/dL (8-23); Calcium 8.4 mg/dL (8.6-10.3); Carbon Dioxide 24 mEq/L (23-29); Chloride 90 mEq/L (98-107); Globulin 2.6 g/dL (2.4-3.5); Glucose 132 mg/dL (70-105); Magnesium 1.7 mg/dL (1.6-2.6); Osmolality,Calculated 261 (280-300); Sodium 124 mEq/L (136-145); Total Protein 5.3 g/dL (6.4-8.9)
[2022-04-08] MEDS: Multivitamin Liquid 15 ML UDC GTUBE SCH (16:00)
[2022-04-09] MEDS: *HR* Heparin 5,000 UNIT/ML VIAL SQ SCH ×2 (04:30→17:03)
[2022-04-09] MEDS: Aspirin 81 MG TAB.CHEW GTUBE SCH (09:40)
[2022-04-09] MEDS: carvediloL 6.25 MG TABLET GTUBE SCH ×2 (09:40→17:03)
[2022-04-09] MEDS: hydroCHLOROthiazide 25 MG TABLET GTUBE SCH (09:40)
[2022-04-09] MEDS: Cyanocobalamin (B-12) 1,000 MCG TABLET GTUBE SCH (09:40)
[2022-04-09] MEDS: Cholecalciferol (D-3) 1,000 UNIT (25MCG) TABLET GTUBE SCH (09:40)
[2022-04-09] MEDS: Nystatin Cream 15 GM TUBE TP SCH ×3 (09:41→23:34)
[2022-04-09] MEDS: Multivitamin Liquid 15 ML UDC GTUBE SCH (09:41)
[2022-04-09 11:10] LABS: Hematocrit 29.8 % (35.3-44.9); Hemoglobin 9.8 g/dL (11.5-15.4); Mean Corpuscular HGB Conc 32.9 g/dL (31.6-35.5); Mean Corpuscular Hemoglobin 33.1 pg (28.0-33.3); Mean Corpuscular Volume 100.7 fL (83.0-100.0); Mean Platelet Volume 8.7 fL (9.4-12.4); Platelet Count 513 K/mcL (140-400); Red Blood Count 2.96 M/mcL (3.82-4.97); White Blood Count 14.6 K/mcL (4.3-11.1)
[2022-04-09 11:28] LABS: Alanine Aminotransferase 38 Units/L (7-52); Albumin 2.9 g/dL (3.5-5.7); Alkaline Phosphatase 87 Units/L (34-104); Aspartate Amino Transferase 45 Units/L (13-39); BUN/Creatinine Ratio 48 (6-26); Bilirubin,Total 0.4 mg/dL (0.3-1.0); Blood Urea Nitrogen 16 mg/dL (8-23); Calcium 8.9 mg/dL (8.6-10.3); Carbon Dioxide 27 mEq/L (23-29); Chloride 92 mEq/L (98-107); Globulin 2.9 g/dL (2.4-3.5); Glucose 128 mg/dL (70-105); Magnesium 1.8 mg/dL (1.6-2.6); Osmolality,Calculated 265 (280-300); Potassium 4.4 mEq/L (3.5-5.1); Sodium 126 mEq/L (136-145); Total Protein 5.8 g/dL (6.4-8.9)
[2022-04-09 13:47] LABS: Bilirubin,Urine Negative (Negative); Blood,Urine Trace-intact (Negative); Clarity,Urine Clear (Clear); Color,Urine Yellow (Yellow); Glucose,Urine (UA) Normal (Normal); Ketones,Urine Negative (Negative); Leukocyte Esterase,Urine Negative (Negative); Nitrite,Urine Negative (Negative); PH,Urine 8.5 pH Units (5.0-8.0); Protein,Urine Negative (Neg-Trace); Specific Gravity,Urine 1.015 (1.010-1.025)
[2022-04-09 13:50] LABS: RBC,Urine 0-3 per hpf (0-3); WBC,Urine 0-3 per hpf (0-3)
[2022-04-09] MEDS: polyethylene glycoL 3350 17 GM POWD.PACK GTUBE SCH (17:03)
[2022-04-09 19:30] LABS: Potassium,Urine 34.4 mEq/L; Sodium, Urine 101.1 mEq/L
[2022-04-09] MEDS: *HR* LORazepam 0.5 MG TABLET GTUBE PRN (23:34)
[2022-04-10] MEDS: *HR* Heparin 5,000 UNIT/ML VIAL SQ SCH ×2 (05:56→16:17)
[2022-04-10] MEDS: Levothyroxine 25 MCG TABLET GTUBE SCH (05:56)
[2022-04-10 07:24] LABS: Hematocrit 28.7 % (35.3-44.9); Hemoglobin 9.4 g/dL (11.5-15.4); Mean Corpuscular HGB Conc 32.8 g/dL (31.6-35.5); Mean Corpuscular Hemoglobin 33.2 pg (28.0-33.3); Mean Corpuscular Volume 101.4 fL (83.0-100.0); Mean Platelet Volume 8.7 fL (9.4-12.4); Platelet Count 469 K/mcL (140-400); Red Blood Count 2.83 M/mcL (3.82-4.97); Red Cell Distribution Width 15.2 % (11.5-14.5); White Blood Count 12.9 K/mcL (4.3-11.1)
[2022-04-10 08:31] LABS: BUN/Creatinine Ratio 56 (6-26); Blood Urea Nitrogen 18 mg/dL (8-23); Carbon Dioxide 26 mEq/L (23-29); Chloride 94 mEq/L (98-107); Glucose 131 mg/dL (70-105); Osmolality,Calculated 270 (280-300); Potassium 4.1 mEq/L (3.5-5.1); Sodium 128 mEq/L (136-145)
[2022-04-10] MEDS: carvediloL 6.25 MG TABLET GTUBE SCH ×2 (10:07→16:16)
[2022-04-10] MEDS: Cyanocobalamin (B-12) 1,000 MCG TABLET GTUBE SCH (10:07)
[2022-04-10] MEDS: Cholecalciferol (D-3) 1,000 UNIT (25MCG) TABLET GTUBE SCH (10:07)
[2022-04-10] MEDS: Aspirin 81 MG TAB.CHEW GTUBE SCH (10:07)
[2022-04-10] MEDS: Multivitamin Liquid 15 ML UDC GTUBE SCH (10:08)
[2022-04-10] MEDS: Nystatin Cream 15 GM TUBE TP SCH ×3 (10:08→21:28)
[2022-04-10] MEDS: polyethylene glycoL 3350 17 GM POWD.PACK GTUBE SCH (10:08)
[2022-04-10] MEDS: Sennosides/Docusate Sodium TABLET PO PRN (21:27)
[2022-04-11] MEDS: *HR* Heparin 5,000 UNIT/ML VIAL SQ SCH ×2 (06:38→18:52)
[2022-04-11] MEDS: Levothyroxine 25 MCG TABLET GTUBE SCH (06:39)
[2022-04-11] MEDS: polyethylene glycoL 3350 17 GM POWD.PACK GTUBE SCH (08:12)
[2022-04-11] MEDS: carvediloL 6.25 MG TABLET GTUBE SCH ×2 (08:14→18:51)
[2022-04-11] MEDS: Cyanocobalamin (B-12) 1,000 MCG TABLET GTUBE SCH (08:14)
[2022-04-11] MEDS: Cholecalciferol (D-3) 1,000 UNIT (25MCG) TABLET GTUBE SCH (08:14)
[2022-04-11] MEDS: Aspirin 81 MG TAB.CHEW GTUBE SCH (08:14)
[2022-04-11] MEDS: Multivitamin Liquid 15 ML UDC GTUBE SCH (14:09)
[2022-04-11] MEDS: Nystatin Cream 15 GM TUBE TP SCH ×3 (14:09→22:54)
[2022-04-11] MEDS ORDERED: hydrALAZINE 10 MG TABLET PO PRN (19:08)
[2022-04-11] MEDS ORDERED: 0.9 % Sodium Chloride 1,000 ML IVC SCH (22:30)
[2022-04-12 05:06] LABS: Hemoglobin 9.3 g/dL (11.5-15.4); Mean Corpuscular HGB Conc 33.2 g/dL (31.6-35.5); Mean Corpuscular Hemoglobin 33.2 pg (28.0-33.3); Mean Platelet Volume 8.8 fL (9.4-12.4); Platelet Count 438 K/mcL (140-400); Red Cell Distribution Width 15.2 % (11.5-14.5); White Blood Count 14.2 K/mcL (4.3-11.1)
[2022-04-12 05:19] LABS: BUN/Creatinine Ratio 81 (6-26); Blood Urea Nitrogen 22 mg/dL (8-23); Calcium 8.4 mg/dL (8.6-10.3); Carbon Dioxide 24 mEq/L (23-29); Chloride 97 mEq/L (98-107); Glucose 116 mg/dL (70-105); Magnesium 1.7 mg/dL (1.6-2.6); Osmolality,Calculated 274 (280-300); Potassium 2.8 mEq/L (3.5-5.1); Sodium 130 mEq/L (136-145)
[2022-04-12] MEDS: *HR* Heparin 5,000 UNIT/ML VIAL SQ SCH ×2 (06:11→16:12)
[2022-04-12] MEDS ORDERED: Potassium Chloride Elixir 20 MEQ/15 ML UDC GTUBE ONE (07:50)
[2022-04-12] MEDS: 0.9 % Sodium Chloride w KCl 20 MEQ/1,000 ML MLS IVC SCH ×2 (09:15→19:18)
[2022-04-12] MEDS: carvediloL 6.25 MG TABLET GTUBE SCH ×2 (09:15→16:13)
[2022-04-12] MEDS: Nystatin Cream 15 GM TUBE TP SCH ×3 (09:16→21:22)
[2022-04-12 14:56] LABS: BUN/Creatinine Ratio 87 (6-26); Blood Urea Nitrogen 20 mg/dL (8-23); Calcium 8.1 mg/dL (8.6-10.3); Carbon Dioxide 25 mEq/L (23-29); Chloride 104 mEq/L (98-107); Glucose 114 mg/dL (70-105); Osmolality,Calculated 281 (280-300); Sodium 134 mEq/L (136-145)
[2022-04-12] MEDS ORDERED: Ketorolac 30 MG/ML VIAL IVP ONE ×2 (16:00→16:01)
[2022-04-12 17:36] LABS: Hematocrit 25.6 % (35.3-44.9); Hemoglobin 8.3 g/dL (11.5-15.4); Mean Corpuscular HGB Conc 32.4 g/dL (31.6-35.5); Mean Corpuscular Hemoglobin 33.1 pg (28.0-33.3); Mean Platelet Volume 8.5 fL (9.4-12.4); Platelet Count 377 K/mcL (140-400); Red Blood Count 2.51 M/mcL (3.82-4.97); Red Cell Distribution Width 15.3 % (11.5-14.5)
[2022-04-12] MEDS ORDERED: Bisacodyl 10 MG RECTAL SUPPOSITORY RC ONE (21:00)
[2022-04-13] MEDS: *HR* HYDROcodone/Acet 5/325 mg TABLET PO PRN ×3 (01:29→16:53)
[2022-04-13] MEDS: 0.9 % Sodium Chloride w KCl 20 MEQ/1,000 ML MLS IVC SCH ×2 (04:31→14:55)
[2022-04-13 05:23] LABS: Hematocrit 26.1 % (35.3-44.9); Hemoglobin 8.2 g/dL (11.5-15.4); Mean Corpuscular HGB Conc 31.4 g/dL (31.6-35.5); Mean Corpuscular Hemoglobin 32.5 pg (28.0-33.3); Mean Corpuscular Volume 103.6 fL (83.0-100.0); Mean Platelet Volume 8.8 fL (9.4-12.4); Platelet Count 400 K/mcL (140-400); Red Blood Count 2.52 M/mcL (3.82-4.97); Red Cell Distribution Width 15.4 % (11.5-14.5); White Blood Count 12.8 K/mcL (4.3-11.1)
[2022-04-13] MEDS: carvediloL 6.25 MG TABLET GTUBE SCH ×2 (09:13→16:51)
[2022-04-13] MEDS: Nystatin Cream 15 GM TUBE TP SCH ×3 (09:14→21:43)
[2022-04-13 11:52] LABS: BUN/Creatinine Ratio 104 (6-26); Blood Urea Nitrogen 26 mg/dL (8-23); Calcium 8.3 mg/dL (8.6-10.3); Carbon Dioxide 20 mEq/L (23-29); Chloride 107 mEq/L (98-107); Glucose 86 mg/dL (70-105); Magnesium 1.9 mg/dL (1.6-2.6); Osmolality,Calculated 282 (280-300); Potassium 3.8 mEq/L (3.5-5.1); Sodium 134 mEq/L (136-145)
[2022-04-14] MEDS: 0.9 % Sodium Chloride w KCl 20 MEQ/1,000 ML MLS IVC SCH ×2 (00:15→10:06)
[2022-04-14] MEDS: *HR* HYDROcodone/Acet 5/325 mg TABLET PO PRN ×2 (00:28→16:34)
[2022-04-14] MEDS: Levothyroxine 25 MCG TABLET GTUBE SCH (07:58)
[2022-04-14] MEDS ORDERED: Fluconazole 200 MG/100 ML 200 MG/100 ML BAG IVPB SCH (09:32)
[2022-04-14] MEDS: Aspirin 81 MG TAB.CHEW GTUBE SCH (09:48)
[2022-04-14] MEDS: polyethylene glycoL 3350 17 GM POWD.PACK GTUBE SCH (09:48)
[2022-04-14] MEDS: Cyanocobalamin (B-12) 1,000 MCG TABLET GTUBE SCH (09:49)
[2022-04-14] MEDS: Cholecalciferol (D-3) 1,000 UNIT (25MCG) TABLET GTUBE SCH (09:49)
[2022-04-14] MEDS: carvediloL 6.25 MG TABLET GTUBE SCH ×2 (09:49→16:34)
[2022-04-14] MEDS: Multivitamin Liquid 15 ML UDC GTUBE SCH (16:34)
[2022-04-14] MEDS: Nystatin Cream 15 GM TUBE TP SCH ×3 (16:36→21:51)
[2022-04-14] MEDS: *HR* Heparin 5,000 UNIT/ML VIAL SQ SCH (21:50)
[2022-04-15 04:44] LABS: Hematocrit 25.3 % (35.3-44.9); Mean Corpuscular HGB Conc 31.6 g/dL (31.6-35.5); Mean Corpuscular Hemoglobin 32.7 pg (28.0-33.3); Mean Corpuscular Volume 103.3 fL (83.0-100.0); Mean Platelet Volume 8.6 fL (9.4-12.4); Platelet Count 380 K/mcL (140-400); Red Blood Count 2.45 M/mcL (3.82-4.97); Red Cell Distribution Width 16.3 % (11.5-14.5); White Blood Count 15.4 K/mcL (4.3-11.1)
[2022-04-15 05:03] LABS: Alanine Aminotransferase 21 Units/L (7-52); Albumin 2.6 g/dL (3.5-5.7); Albumin/Globulin Ratio 1.1 (1.1-2.2); Alkaline Phosphatase 82 Units/L (34-104); Aspartate Amino Transferase 24 Units/L (13-39); BUN/Creatinine Ratio 58 (6-26); Bilirubin,Total 0.4 mg/dL (0.3-1.0); Blood Urea Nitrogen 14 mg/dL (8-23); Calcium 8.2 mg/dL (8.6-10.3); Carbon Dioxide 18 mEq/L (23-29); Chloride 107 mEq/L (98-107); Globulin 2.4 g/dL (2.4-3.5); Glucose 129 mg/dL (70-105); Magnesium 1.8 mg/dL (1.6-2.6); Osmolality,Calculated 274 (280-300); Potassium 3.8 mEq/L (3.5-5.1); Sodium 131 mEq/L (136-145)
[2022-04-15] MEDS: *HR* Heparin 5,000 UNIT/ML VIAL SQ SCH ×2 (06:25→17:19)
[2022-04-15] MEDS: carvediloL 6.25 MG TABLET GTUBE SCH ×2 (08:32→17:19)
[2022-04-15] MEDS: Cyanocobalamin (B-12) 1,000 MCG TABLET GTUBE SCH (08:32)
[2022-04-15] MEDS: Levothyroxine 25 MCG TABLET GTUBE SCH (08:32)
[2022-04-15] MEDS: Cholecalciferol (D-3) 1,000 UNIT (25MCG) TABLET GTUBE SCH (08:32)
[2022-04-15] MEDS: Aspirin 81 MG TAB.CHEW GTUBE SCH (08:33)
[2022-04-15] MEDS: Multivitamin Liquid 15 ML UDC GTUBE SCH (08:33)
[2022-04-15] MEDS: polyethylene glycoL 3350 17 GM POWD.PACK GTUBE SCH (08:33)
[2022-04-15] MEDS ORDERED: FLUCONAZOLE 200 MG/5 ML GTUBE SCH (09:00)
[2022-04-15] MEDS: Nystatin Cream 15 GM TUBE TP SCH ×3 (09:51→20:57)
[2022-04-16] MEDS: *HR* Heparin 5,000 UNIT/ML VIAL SQ SCH ×2 (05:09→17:31)
[2022-04-16] MEDS: Levothyroxine 25 MCG TABLET GTUBE SCH (05:09)
[2022-04-16] MEDS: Aspirin 81 MG TAB.CHEW GTUBE SCH (09:53)
[2022-04-16] MEDS: Multivitamin Liquid 15 ML UDC GTUBE SCH (09:53)
[2022-04-16] MEDS: carvediloL 6.25 MG TABLET GTUBE SCH ×2 (09:53→16:42)
[2022-04-16] MEDS: polyethylene glycoL 3350 17 GM POWD.PACK GTUBE SCH (09:54)
[2022-04-16] MEDS: FLUCONAZOLE 200 MG/5 ML GTUBE SCH (09:54)
[2022-04-16] MEDS: Cyanocobalamin (B-12) 1,000 MCG TABLET GTUBE SCH (09:54)
[2022-04-16] MEDS: *HR* HYDROcodone/Acet 5/325 mg TABLET PO PRN ×3 (09:54→22:18)
[2022-04-16] MEDS: Nystatin Cream 15 GM TUBE TP SCH ×3 (09:54→20:10)
[2022-04-16] MEDS: Cholecalciferol (D-3) 1,000 UNIT (25MCG) TABLET GTUBE SCH (09:54)
[2022-04-16 12:36] LABS: Basophils % 0.3 %; Eosinophils # 0.1 K/mcL (0.0-0.6); Hematocrit 25.1 % (35.3-44.9); Hemoglobin 8.1 g/dL (11.5-15.4); Immature Granulocytes % 2.8 % (0-4); Lymphocytes # 1.3 K/mcL (0.6-4.6); Lymphocytes % 9.1 %; Mean Corpuscular HGB Conc 32.3 g/dL (31.6-35.5); Mean Corpuscular Volume 105.5 fL (83.0-100.0); Monocytes % 7.1 %; Neutrophils # 11.4 K/mcL (1.6-8.9); Nucleated Red Blood Cells 0.6 /100 WBC (0); Platelet Count 340 K/mcL (140-400); Red Blood Count 2.38 M/mcL (3.82-4.97); Red Cell Distribution Width 16.9 % (11.5-14.5); Segmented Neutrophils % 79.7 %; White Blood Count 14.3 K/mcL (4.3-11.1)
[2022-04-16] MEDS: Furosemide 40 MG TABLET PO SCH (13:54)
[2022-04-16 14:45] LABS: BUN/Creatinine Ratio 45 (6-26); Blood Urea Nitrogen 14 mg/dL (8-23); Calcium 8.3 mg/dL (8.6-10.3); Carbon Dioxide 19 mEq/L (23-29); Chloride 104 mEq/L (98-107); Glucose 118 mg/dL (70-105); Osmolality,Calculated 274 (280-300); Potassium 4.5 mEq/L (3.5-5.1); Sodium 131 mEq/L (136-145)
[2022-04-16] MEDS: *HR* LORazepam 0.5 MG TABLET GTUBE PRN (20:10)
[2022-04-17] MEDS: *HR* Heparin 5,000 UNIT/ML VIAL SQ SCH ×2 (05:19→16:56)
[2022-04-17] MEDS: Levothyroxine 25 MCG TABLET GTUBE SCH (05:20)
[2022-04-17] MEDS: *HR* HYDROcodone/Acet 5/325 mg TABLET PO PRN (05:20)
[2022-04-17] MEDS: Cyanocobalamin (B-12) 1,000 MCG TABLET GTUBE SCH (09:58)
[2022-04-17] MEDS: Cholecalciferol (D-3) 1,000 UNIT (25MCG) TABLET GTUBE SCH (09:58)
[2022-04-17] MEDS: Aspirin 81 MG TAB.CHEW GTUBE SCH (09:59)
[2022-04-17] MEDS: carvediloL 6.25 MG TABLET GTUBE SCH ×2 (09:59→16:56)
[2022-04-17] MEDS: Nystatin Cream 15 GM TUBE TP SCH ×3 (10:00→20:16)
[2022-04-17] MEDS: Furosemide 40 MG TABLET PO SCH (10:00)
[2022-04-17] MEDS: polyethylene glycoL 3350 17 GM POWD.PACK GTUBE SCH (10:00)
[2022-04-17] MEDS: Multivitamin Liquid 15 ML UDC GTUBE SCH (10:03)
[2022-04-17] MEDS ORDERED: *HR* HYDROcodone/Acet 7.5/325 mg TABLET PO PRN (10:23)
[2022-04-17] MEDS: *HR* HYDROcodone/Acet 7.5/325 mg TABLET GTUBE PRN ×3 (10:38→17:43)
[2022-04-17] MEDS ORDERED: Sennosides/Docusate Sodium TABLET GTUBE PRN (10:45)
[2022-04-17] MEDS ORDERED: MOM Conc 10 ML UD.LIQ GTUBE PRN (10:45)
[2022-04-17] MEDS: FLUCONAZOLE 200 MG/5 ML GTUBE SCH (13:56)
[2022-04-18] MEDS: *HR* Heparin 5,000 UNIT/ML VIAL SQ SCH ×2 (05:07→17:11)
[2022-04-18] MEDS: Levothyroxine 25 MCG TABLET GTUBE SCH (05:08)
[2022-04-18] MEDS: *HR* HYDROcodone/Acet 7.5/325 mg TABLET GTUBE PRN ×2 (05:08→17:15)
[2022-04-18] MEDS: Cyanocobalamin (B-12) 1,000 MCG TABLET GTUBE SCH (09:00)
[2022-04-18] MEDS: Aspirin 81 MG TAB.CHEW GTUBE SCH (09:01)
[2022-04-18] MEDS: *HR* HYDROcodone/Acet 5/325 mg TABLET GTUBE PRN ×2 (09:01→13:10)
[2022-04-18] MEDS: carvediloL 6.25 MG TABLET GTUBE SCH ×2 (09:01→17:11)
[2022-04-18] MEDS: Cholecalciferol (D-3) 1,000 UNIT (25MCG) TABLET GTUBE SCH (09:01)
[2022-04-18] MEDS: Furosemide 40 MG TABLET PO SCH (09:02)
[2022-04-18] MEDS: *HR* LORazepam 0.5 MG TABLET GTUBE PRN ×2 (09:02→22:45)
[2022-04-18] MEDS: Multivitamin Liquid 15 ML UDC GTUBE SCH (09:02)
[2022-04-18] MEDS: FLUCONAZOLE 200 MG/5 ML GTUBE SCH (09:02)
[2022-04-18] MEDS: Nystatin Cream 15 GM TUBE TP SCH ×3 (09:03→22:45)
[2022-04-18] MEDS: polyethylene glycoL 3350 17 GM POWD.PACK GTUBE SCH (09:03)
[2022-04-18 11:06] LABS: Mean Corpuscular HGB Conc 29.6 g/dL (31.6-35.5); Mean Corpuscular Volume 104.7 fL (83.0-100.0); Mean Platelet Volume 7.8 fL (9.4-12.4); Platelet Count 447 K/mcL (140-400); Red Blood Count 2.58 M/mcL (3.82-4.97); White Blood Count 11.1 K/mcL (4.3-11.1)
[2022-04-18 11:30] LABS: Alanine Aminotransferase 20 Units/L (7-52); Albumin 2.6 g/dL (3.5-5.7); Alkaline Phosphatase 93 Units/L (34-104); Aspartate Amino Transferase 27 Units/L (13-39); BUN/Creatinine Ratio 52 (6-26); Bilirubin,Total 0.4 mg/dL (0.3-1.0); Blood Urea Nitrogen 15 mg/dL (8-23); Calcium 8.7 mg/dL (8.6-10.3); Carbon Dioxide 23 mEq/L (23-29); Chloride 99 mEq/L (98-107); Globulin 2.7 g/dL (2.4-3.5); Glucose 106 mg/dL (70-105); Osmolality,Calculated 269 (280-300); Sodium 129 mEq/L (136-145); Total Protein 5.3 g/dL (6.4-8.9)
[2022-04-19 05:25] LABS: Potassium 4.9 mEq/L (3.5-5.1)
[2022-04-19 05:38] LABS: BUN/Creatinine Ratio 78 (6-26); Blood Urea Nitrogen 21 mg/dL (8-23); Calcium 8.3 mg/dL (8.6-10.3); Carbon Dioxide 22 mEq/L (23-29); Chloride 97 mEq/L (98-107); Glucose 109 mg/dL (70-105); Osmolality,Calculated 264 (280-300); Sodium 125 mEq/L (136-145)
[2022-04-19] MEDS: *HR* Heparin 5,000 UNIT/ML VIAL SQ SCH ×2 (06:16→17:50)
[2022-04-19] MEDS: Nystatin Cream 15 GM TUBE TP SCH ×3 (11:24→22:25)
[2022-04-19] MEDS: Cholecalciferol (D-3) 1,000 UNIT (25MCG) TABLET GTUBE SCH (11:24)
[2022-04-19] MEDS: *HR* HYDROcodone/Acet 7.5/325 mg TABLET GTUBE PRN ×2 (11:24→14:38)
[2022-04-19] MEDS: Aspirin 81 MG TAB.CHEW GTUBE SCH (11:24)
[2022-04-19] MEDS: *HR* LORazepam 0.5 MG TABLET GTUBE PRN (11:25)
[2022-04-19] MEDS: Cyanocobalamin (B-12) 1,000 MCG TABLET GTUBE SCH (11:25)
[2022-04-19] MEDS: carvediloL 6.25 MG TABLET GTUBE SCH ×2 (11:25→17:50)
[2022-04-19] MEDS: Multivitamin Liquid 15 ML UDC GTUBE SCH (11:25)
[2022-04-19] MEDS: FLUCONAZOLE 200 MG/5 ML GTUBE SCH (11:26)
[2022-04-19] MEDS: Levothyroxine 25 MCG TABLET GTUBE SCH (11:31)
[2022-04-19] MEDS: polyethylene glycoL 3350 17 GM POWD.PACK GTUBE SCH (11:32)
[2022-04-19] MEDS: *HR* HYDROcodone/Acet 5/325 mg TABLET GTUBE SCH ×2 (16:38→22:24)
[2022-04-19] MEDS: *HR* HYDROcodone/Acet 5/325 mg TABLET PO PRN (17:49)
[2022-04-19] MEDS: Gabapentin 100 MG CAPSULE PO SCH (22:24)
[2022-04-20] MEDS: Levothyroxine 25 MCG TABLET GTUBE SCH (04:31)
[2022-04-20] MEDS: *HR* HYDROcodone/Acet 5/325 mg TABLET PO PRN ×2 (04:31→13:37)
[2022-04-20] MEDS: *HR* Heparin 5,000 UNIT/ML VIAL SQ SCH ×2 (04:32→16:34)
[2022-04-20 05:08] LABS: Hematocrit 23.6 % (35.3-44.9); Hemoglobin 7.4 g/dL (11.5-15.4); Mean Corpuscular HGB Conc 31.4 g/dL (31.6-35.5); Mean Corpuscular Hemoglobin 32.5 pg (28.0-33.3); Mean Corpuscular Volume 103.5 fL (83.0-100.0); Mean Platelet Volume 8.8 fL (9.4-12.4); Platelet Count 472 K/mcL (140-400); Red Blood Count 2.28 M/mcL (3.82-4.97); Red Cell Distribution Width 16.3 % (11.5-14.5)
[2022-04-20 05:22] LABS: Alanine Aminotransferase 19 Units/L (7-52); Albumin 2.5 g/dL (3.5-5.7); Alkaline Phosphatase 95 Units/L (34-104); Aspartate Amino Transferase 26 Units/L (13-39); BUN/Creatinine Ratio 67 (6-26); Bilirubin,Total 0.4 mg/dL (0.3-1.0); Blood Urea Nitrogen 18 mg/dL (8-23); Calcium 8.5 mg/dL (8.6-10.3); Carbon Dioxide 27 mEq/L (23-29); Chloride 101 mEq/L (98-107); Globulin 2.5 g/dL (2.4-3.5); Glucose 119 mg/dL (70-105); Magnesium 1.9 mg/dL (1.6-2.6); Osmolality,Calculated 277 (280-300); Potassium 4.3 mEq/L (3.5-5.1); Sodium 132 mEq/L (136-145)
[2022-04-20] MEDS: Multivitamin Liquid 15 ML UDC GTUBE SCH (09:43)
[2022-04-20] MEDS: Cholecalciferol (D-3) 1,000 UNIT (25MCG) TABLET GTUBE SCH (09:44)
[2022-04-20] MEDS: *HR* HYDROcodone/Acet 5/325 mg TABLET GTUBE SCH ×3 (09:44→22:19)
[2022-04-20] MEDS: Nystatin Cream 15 GM TUBE TP SCH ×3 (09:44→22:20)
[2022-04-20] MEDS: Cyanocobalamin (B-12) 1,000 MCG TABLET GTUBE SCH (09:45)
[2022-04-20] MEDS: carvediloL 6.25 MG TABLET GTUBE SCH ×2 (09:45→16:34)
[2022-04-20] MEDS: Aspirin 81 MG TAB.CHEW GTUBE SCH (09:45)
[2022-04-20] MEDS: Gabapentin 100 MG CAPSULE PO SCH ×3 (09:45→22:19)
[2022-04-20] MEDS: *HR* LORazepam 0.5 MG TABLET GTUBE PRN ×2 (10:04→16:34)
[2022-04-20] MEDS: polyethylene glycoL 3350 17 GM POWD.PACK GTUBE SCH (11:38)
[2022-04-21] MEDS: Levothyroxine 25 MCG TABLET GTUBE SCH (06:22)
[2022-04-21] MEDS: *HR* Heparin 5,000 UNIT/ML VIAL SQ SCH ×2 (06:22→18:02)
[2022-04-21] MEDS: *HR* LORazepam 0.5 MG TABLET GTUBE PRN ×2 (09:37→21:33)
[2022-04-21] MEDS: Cyanocobalamin (B-12) 1,000 MCG TABLET GTUBE SCH (09:37)
[2022-04-21] MEDS: *HR* HYDROcodone/Acet 5/325 mg TABLET GTUBE SCH ×2 (09:38→18:01)
[2022-04-21] MEDS: Aspirin 81 MG TAB.CHEW GTUBE SCH (09:38)
[2022-04-21] MEDS: Cholecalciferol (D-3) 1,000 UNIT (25MCG) TABLET GTUBE SCH (09:38)
[2022-04-21] MEDS: Gabapentin 100 MG CAPSULE PO SCH ×3 (09:38→21:33)
[2022-04-21] MEDS: carvediloL 6.25 MG TABLET GTUBE SCH ×2 (09:38→18:01)
[2022-04-21] MEDS: Nystatin Cream 15 GM TUBE TP SCH ×3 (09:39→21:46)
[2022-04-21] MEDS: polyethylene glycoL 3350 17 GM POWD.PACK GTUBE SCH (09:39)
[2022-04-21] MEDS: Multivitamin Liquid 15 ML UDC GTUBE SCH (09:39)
[2022-04-21 15:19] LABS: Basophils # 0.1 K/mcL (0.0-0.2); Basophils % 0.4 %; Eosinophils # 0.1 K/mcL (0.0-0.6); Eosinophils % 0.6 %; Hemoglobin 8.1 g/dL (11.5-15.4); Immature Granulocytes % 1.4 % (0-4); Lymphocytes # 1.8 K/mcL (0.6-4.6); Lymphocytes % 12.6 %; Mean Corpuscular HGB Conc 31.2 g/dL (31.6-35.5); Mean Corpuscular Hemoglobin 31.9 pg (28.0-33.3); Mean Corpuscular Volume 102.4 fL (83.0-100.0); Mean Platelet Volume 8.6 fL (9.4-12.4); Monocytes # 1.3 K/mcL (0.0-1.3); Monocytes % 9.4 %; Neutrophils # 10.5 K/mcL (1.6-8.9); Nucleated Red Blood Cells 0.9 /100 WBC (0); Platelet Count 538 K/mcL (140-400); Red Blood Count 2.54 M/mcL (3.82-4.97); Red Cell Distribution Width 16.2 % (11.5-14.5); Segmented Neutrophils % 75.6 %; White Blood Count 13.9 K/mcL (4.3-11.1)
[2022-04-21 15:52] LABS: BUN/Creatinine Ratio 63 (6-26); Blood Urea Nitrogen 20 mg/dL (8-23); Calcium 8.8 mg/dL (8.6-10.3); Carbon Dioxide 27 mEq/L (23-29); Chloride 99 mEq/L (98-107); Glucose 106 mg/dL (70-105); Osmolality,Calculated 277 (280-300); Potassium 4.4 mEq/L (3.5-5.1); Sodium 132 mEq/L (136-145)
[2022-04-21] MEDS: *HR* HYDROcodone/Acet 5/325 mg TABLET PO PRN (21:33)
[2022-04-22] MEDS: *HR* HYDROcodone/Acet 5/325 mg TABLET GTUBE SCH ×4 (00:43→23:37)
[2022-04-22 04:34] LABS: Basophils % 0.4 %; Eosinophils # 0.1 K/mcL (0.0-0.6); Eosinophils % 0.9 %; Hematocrit 23.1 % (35.3-44.9); Hemoglobin 7.1 g/dL (11.5-15.4); Immature Granulocytes % 1.2 % (0-4); Lymphocytes # 1.7 K/mcL (0.6-4.6); Lymphocytes % 15.1 %; Mean Corpuscular HGB Conc 30.7 g/dL (31.6-35.5); Mean Corpuscular Hemoglobin 31.6 pg (28.0-33.3); Mean Corpuscular Volume 102.7 fL (83.0-100.0); Mean Platelet Volume 8.7 fL (9.4-12.4); Monocytes # 1.2 K/mcL (0.0-1.3); Monocytes % 10.8 %; Neutrophils # 8.1 K/mcL (1.6-8.9); Nucleated Red Blood Cells 0.4 /100 WBC (0); Platelet Count 497 K/mcL (140-400); Red Blood Count 2.25 M/mcL (3.82-4.97); Red Cell Distribution Width 16.3 % (11.5-14.5); Segmented Neutrophils % 71.6 %; White Blood Count 11.3 K/mcL (4.3-11.1)
[2022-04-22 04:37] LABS: Basophils # 0.1 K/mcL (0.0-0.2)
[2022-04-22 04:52] LABS: BUN/Creatinine Ratio 76 (6-26); Blood Urea Nitrogen 22 mg/dL (8-23); Calcium 8.4 mg/dL (8.6-10.3); Carbon Dioxide 27 mEq/L (23-29); Chloride 100 mEq/L (98-107); Glucose 117 mg/dL (70-105); Osmolality,Calculated 276 (280-300); Potassium 4.4 mEq/L (3.5-5.1); Sodium 131 mEq/L (136-145)
[2022-04-22] MEDS: *HR* Heparin 5,000 UNIT/ML VIAL SQ SCH ×2 (05:23→16:27)
[2022-04-22] MEDS: Levothyroxine 25 MCG TABLET GTUBE SCH (05:23)
[2022-04-22] MEDS: *HR* HYDROcodone/Acet 5/325 mg TABLET PO PRN ×2 (05:30→16:41)
[2022-04-22] MEDS ORDERED: polyethylene glycoL 3350 17 GM POWD.PACK GTUBE PRN (10:09)
[2022-04-22] MEDS: polyethylene glycoL 3350 17 GM POWD.PACK GTUBE SCH (10:11)
[2022-04-22] MEDS: Cyanocobalamin (B-12) 1,000 MCG TABLET GTUBE SCH (10:29)
[2022-04-22] MEDS: carvediloL 6.25 MG TABLET GTUBE SCH ×2 (10:31→16:28)
[2022-04-22] MEDS: Cholecalciferol (D-3) 1,000 UNIT (25MCG) TABLET GTUBE SCH (10:36)
[2022-04-22] MEDS: Aspirin 81 MG TAB.CHEW GTUBE SCH (10:37)
[2022-04-22] MEDS: Multivitamin Liquid 15 ML UDC GTUBE SCH (10:38)
[2022-04-22] MEDS: Gabapentin 100 MG CAPSULE PO SCH ×3 (10:38→21:33)
[2022-04-22] MEDS: Nystatin Cream 15 GM TUBE TP SCH ×3 (10:38→21:34)
[2022-04-22] MEDS: *HR* LORazepam 0.5 MG TABLET GTUBE PRN (21:33)
[2022-04-23 04:35] LABS: Basophils % 0.3 %; Eosinophils # 0.1 K/mcL (0.0-0.6); Eosinophils % 0.7 %; Hematocrit 22.6 % (35.3-44.9); Lymphocytes # 1.8 K/mcL (0.6-4.6); Lymphocytes % 16.2 %; Mean Corpuscular Hemoglobin 31.7 pg (28.0-33.3); Mean Corpuscular Volume 102.3 fL (83.0-100.0); Mean Platelet Volume 8.7 fL (9.4-12.4); Monocytes % 9.5 %; Neutrophils # 7.9 K/mcL (1.6-8.9); Nucleated Red Blood Cells 0.4 /100 WBC (0); Platelet Count 517 K/mcL (140-400); Red Blood Count 2.21 M/mcL (3.82-4.97); Segmented Neutrophils % 72.3 %; White Blood Count 10.9 K/mcL (4.3-11.1)
[2022-04-23 04:50] LABS: BUN/Creatinine Ratio 63 (6-26); Blood Urea Nitrogen 17 mg/dL (8-23); Calcium 8.5 mg/dL (8.6-10.3); Carbon Dioxide 27 mEq/L (23-29); Chloride 100 mEq/L (98-107); Glucose 107 mg/dL (70-105); Osmolality,Calculated 274 (280-300); Potassium 4.3 mEq/L (3.5-5.1); Sodium 131 mEq/L (136-145)
[2022-04-23] MEDS: *HR* HYDROcodone/Acet 5/325 mg TABLET PO PRN ×3 (05:31→21:01)
[2022-04-23] MEDS: *HR* Heparin 5,000 UNIT/ML VIAL SQ SCH ×2 (05:32→16:07)
[2022-04-23] MEDS: Levothyroxine 25 MCG TABLET GTUBE SCH (05:32)
[2022-04-23 08:02] LABS: % Iron Saturation 9 % (15-50); Iron 24 mcg/dL (50-170); Transferrin 196 mg/dL (203-362)
[2022-04-23] MEDS: Cyanocobalamin (B-12) 1,000 MCG TABLET GTUBE SCH (08:21)
[2022-04-23] MEDS: Gabapentin 100 MG CAPSULE PO SCH ×3 (08:21→21:01)
[2022-04-23] MEDS: Cholecalciferol (D-3) 1,000 UNIT (25MCG) TABLET GTUBE SCH (08:21)
[2022-04-23] MEDS: *HR* HYDROcodone/Acet 5/325 mg TABLET GTUBE SCH ×2 (08:22→16:06)
[2022-04-23] MEDS: Aspirin 81 MG TAB.CHEW GTUBE SCH (08:22)
[2022-04-23] MEDS: carvediloL 6.25 MG TABLET GTUBE SCH ×2 (08:22→16:06)
[2022-04-23] MEDS: Nystatin Cream 15 GM TUBE TP SCH ×3 (08:25→21:02)
[2022-04-23] MEDS: Multivitamin Liquid 15 ML UDC GTUBE SCH (08:25)
[2022-04-23 08:31] LABS: Folate 13.3 ng/mL (3.0-16.0); Vitamin B12 > 1500 pg/mL (250-1100)
[2022-04-23] MEDS: Ferrous Sulfate Oral Soln 300 MG/5 ML UDC GTUBE SCH (11:27)
[2022-04-24] MEDS: *HR* HYDROcodone/Acet 5/325 mg TABLET GTUBE SCH ×3 (00:38→16:39)
[2022-04-24 03:57] LABS: Basophils # 0.1 K/mcL (0.0-0.2); Basophils % 0.5 %; Eosinophils # 0.1 K/mcL (0.0-0.6); Eosinophils % 0.6 %; Hemoglobin 8.1 g/dL (11.5-15.4); Immature Granulocytes % 1.1 % (0-4); Lymphocytes # 2.1 K/mcL (0.6-4.6); Lymphocytes % 16.8 %; Mean Corpuscular HGB Conc 31.2 g/dL (31.6-35.5); Mean Corpuscular Volume 102.8 fL (83.0-100.0); Mean Platelet Volume 8.6 fL (9.4-12.4); Monocytes # 1.3 K/mcL (0.0-1.3); Monocytes % 10.5 %; Neutrophils # 8.7 K/mcL (1.6-8.9); Nucleated Red Blood Cells 0.5 /100 WBC (0); Platelet Count 552 K/mcL (140-400); Red Blood Count 2.53 M/mcL (3.82-4.97); Red Cell Distribution Width 16.2 % (11.5-14.5); Segmented Neutrophils % 70.5 %; White Blood Count 12.4 K/mcL (4.3-11.1)
[2022-04-24] MEDS: Levothyroxine 25 MCG TABLET GTUBE SCH (05:31)
[2022-04-24] MEDS: *HR* Heparin 5,000 UNIT/ML VIAL SQ SCH ×2 (05:31→16:39)
[2022-04-24] MEDS: *HR* HYDROcodone/Acet 5/325 mg TABLET PO PRN ×3 (05:31→21:40)
[2022-04-24] MEDS: Ferrous Sulfate Oral Soln 300 MG/5 ML UDC GTUBE SCH ×2 (08:32→16:39)
[2022-04-24] MEDS: carvediloL 6.25 MG TABLET GTUBE SCH ×2 (08:32→16:39)
[2022-04-24] MEDS: Aspirin 81 MG TAB.CHEW GTUBE SCH (08:32)
[2022-04-24] MEDS: Multivitamin Liquid 15 ML UDC GTUBE SCH (08:32)
[2022-04-24] MEDS: Gabapentin 100 MG CAPSULE PO SCH ×3 (08:32→21:40)
[2022-04-24] MEDS: Cyanocobalamin (B-12) 1,000 MCG TABLET GTUBE SCH (08:32)
[2022-04-24] MEDS: Cholecalciferol (D-3) 1,000 UNIT (25MCG) TABLET GTUBE SCH (08:32)
[2022-04-24] MEDS: Nystatin Cream 15 GM TUBE TP SCH ×3 (08:33→21:51)
[2022-04-24] MEDS ORDERED: E-Z-PAQUE (BARIUM SULF) SUSP 1 BOTTLE PO ONE (12:29)
[2022-04-24] MEDS ORDERED: E-Z-HD (BARIUM SULF) SUSPENSION PO ONE (12:29)
[2022-04-24] MEDS: Ascorbic Acid 500 MG TABLET GTUBE SCH (16:39)
[2022-04-24] MEDS: Simethicone 40 MG/0.6 ML MLS GTUBE SCH ×2 (16:40→21:47)
[2022-04-24] MEDS: *HR* LORazepam 0.5 MG TABLET GTUBE PRN (21:40)
[2022-04-25] MEDS: *HR* HYDROcodone/Acet 5/325 mg TABLET GTUBE SCH ×3 (00:02→16:54)
[2022-04-25] MEDS: Levothyroxine 25 MCG TABLET GTUBE SCH (06:22)
[2022-04-25] MEDS: *HR* Heparin 5,000 UNIT/ML VIAL SQ SCH ×2 (06:22→17:02)
[2022-04-25] MEDS: *HR* HYDROcodone/Acet 5/325 mg TABLET PO PRN (06:22)
[2022-04-25] MEDS: Aspirin 81 MG TAB.CHEW GTUBE SCH (09:09)
[2022-04-25] MEDS: Ascorbic Acid 500 MG TABLET GTUBE SCH ×2 (09:09→16:53)
[2022-04-25] MEDS: carvediloL 6.25 MG TABLET GTUBE SCH ×2 (09:09→16:53)
[2022-04-25] MEDS: Cyanocobalamin (B-12) 1,000 MCG TABLET GTUBE SCH (09:09)
[2022-04-25] MEDS: Ferrous Sulfate Oral Soln 300 MG/5 ML UDC GTUBE SCH ×2 (09:09→16:54)
[2022-04-25] MEDS: Gabapentin 100 MG CAPSULE PO SCH ×3 (09:09→22:07)
[2022-04-25] MEDS: Cholecalciferol (D-3) 1,000 UNIT (25MCG) TABLET GTUBE SCH (09:09)
[2022-04-25] MEDS: Nystatin Cream 15 GM TUBE TP SCH ×3 (09:10→22:09)
[2022-04-25] MEDS: Multivitamin Liquid 15 ML UDC GTUBE SCH (09:10)
[2022-04-25] MEDS: Simethicone 40 MG/0.6 ML MLS GTUBE SCH ×2 (09:25→16:54)
[2022-04-26] MEDS: *HR* HYDROcodone/Acet 5/325 mg TABLET GTUBE SCH ×3 (00:19→17:23)
[2022-04-26] MEDS: Simethicone 40 MG/0.6 ML MLS GTUBE SCH ×3 (00:20→17:23)
[2022-04-26 04:22] LABS: Hematocrit 24.2 % (35.3-44.9); Hemoglobin 7.5 g/dL (11.5-15.4); Mean Corpuscular Hemoglobin 31.1 pg (28.0-33.3); Mean Corpuscular Volume 100.4 fL (83.0-100.0); Mean Platelet Volume 8.3 fL (9.4-12.4); Platelet Count 564 K/mcL (140-400); Red Blood Count 2.41 M/mcL (3.82-4.97); Red Cell Distribution Width 16.2 % (11.5-14.5); White Blood Count 11.3 K/mcL (4.3-11.1)
[2022-04-26 04:39] LABS: BUN/Creatinine Ratio 70 (6-26); Blood Urea Nitrogen 19 mg/dL (8-23); Calcium 8.6 mg/dL (8.6-10.3); Carbon Dioxide 25 mEq/L (23-29); Chloride 101 mEq/L (98-107); Glucose 114 mg/dL (70-105); Magnesium 1.9 mg/dL (1.6-2.6); Osmolality,Calculated 277 (280-300); Potassium 3.7 mEq/L (3.5-5.1); Sodium 132 mEq/L (136-145)
[2022-04-26] MEDS: *HR* Heparin 5,000 UNIT/ML VIAL SQ SCH ×2 (05:16→17:24)
[2022-04-26] MEDS: Levothyroxine 25 MCG TABLET GTUBE SCH (05:16)
[2022-04-26] MEDS: Ferrous Sulfate Oral Soln 300 MG/5 ML UDC GTUBE SCH ×2 (07:55→17:23)
[2022-04-26] MEDS: Ascorbic Acid 500 MG TABLET GTUBE SCH ×2 (07:56→17:24)
[2022-04-26] MEDS: Gabapentin 100 MG CAPSULE PO SCH ×3 (07:57→20:51)
[2022-04-26] MEDS: Cyanocobalamin (B-12) 1,000 MCG TABLET GTUBE SCH (07:57)
[2022-04-26] MEDS: Aspirin 81 MG TAB.CHEW GTUBE SCH (07:57)
[2022-04-26] MEDS: Cholecalciferol (D-3) 1,000 UNIT (25MCG) TABLET GTUBE SCH (07:57)
[2022-04-26] MEDS: carvediloL 6.25 MG TABLET GTUBE SCH ×2 (07:58→17:24)
[2022-04-26] MEDS: Nystatin Cream 15 GM TUBE TP SCH ×3 (08:05→20:57)
[2022-04-26] MEDS: Multivitamin Liquid 15 ML UDC GTUBE SCH (12:56)
[2022-04-26] MEDS: *HR* HYDROcodone/Acet 5/325 mg TABLET PO PRN (14:01)
[2022-04-27] MEDS: *HR* HYDROcodone/Acet 5/325 mg TABLET GTUBE SCH ×4 (01:33→23:39)
[2022-04-27] MEDS: Simethicone 40 MG/0.6 ML MLS GTUBE SCH ×4 (01:33→23:39)
[2022-04-27] MEDS: *HR* Heparin 5,000 UNIT/ML VIAL SQ SCH ×2 (06:54→18:00)
[2022-04-27] MEDS: Levothyroxine 25 MCG TABLET GTUBE SCH (06:54)
[2022-04-27] MEDS: Multivitamin Liquid 15 ML UDC GTUBE SCH (08:39)
[2022-04-27] MEDS: Cholecalciferol (D-3) 1,000 UNIT (25MCG) TABLET GTUBE SCH (08:39)
[2022-04-27] MEDS: Aspirin 81 MG TAB.CHEW GTUBE SCH (08:39)
[2022-04-27] MEDS: Cyanocobalamin (B-12) 1,000 MCG TABLET GTUBE SCH (08:39)
[2022-04-27] MEDS: Ferrous Sulfate Oral Soln 300 MG/5 ML UDC GTUBE SCH ×2 (08:39→16:21)
[2022-04-27] MEDS: carvediloL 6.25 MG TABLET GTUBE SCH ×2 (08:39→16:22)
[2022-04-27] MEDS: Nystatin Cream 15 GM TUBE TP SCH ×3 (08:40→20:55)
[2022-04-27] MEDS: Ascorbic Acid 500 MG TABLET GTUBE SCH ×2 (08:40→16:21)
[2022-04-27] MEDS: Gabapentin 100 MG CAPSULE PO SCH ×3 (08:40→20:55)
[2022-04-27] MEDS: *HR* HYDROcodone/Acet 5/325 mg TABLET PO PRN (13:33)
[2022-04-28] MEDS: *HR* Heparin 5,000 UNIT/ML VIAL SQ SCH ×2 (05:22→16:12)
[2022-04-28] MEDS: Levothyroxine 25 MCG TABLET GTUBE SCH (05:22)
[2022-04-28 05:47] LABS: Basophils % 0.4 %; Eosinophils # 0.1 K/mcL (0.0-0.6); Eosinophils % 1.2 %; Hematocrit 22.9 % (35.3-44.9); Hemoglobin 7.1 g/dL (11.5-15.4); Immature Granulocytes % 0.7 % (0-4); Lymphocytes # 1.6 K/mcL (0.6-4.6); Lymphocytes % 16.9 %; Mean Corpuscular Hemoglobin 31.4 pg (28.0-33.3); Mean Corpuscular Volume 101.3 fL (83.0-100.0); Mean Platelet Volume 8.5 fL (9.4-12.4); Monocytes # 0.9 K/mcL (0.0-1.3); Neutrophils # 6.8 K/mcL (1.6-8.9); Nucleated Red Blood Cells 0.2 /100 WBC (0); Platelet Count 564 K/mcL (140-400); Red Blood Count 2.26 M/mcL (3.82-4.97); Red Cell Distribution Width 16.1 % (11.5-14.5); Segmented Neutrophils % 71.8 %; White Blood Count 9.5 K/mcL (4.3-11.1)
[2022-04-28 06:05] LABS: Alanine Aminotransferase 17 Units/L (7-52); Albumin 2.5 g/dL (3.5-5.7); Alkaline Phosphatase 85 Units/L (34-104); Aspartate Amino Transferase 23 Units/L (13-39); BUN/Creatinine Ratio 58 (6-26); Bilirubin,Total 0.3 mg/dL (0.3-1.0); Blood Urea Nitrogen 14 mg/dL (8-23); Calcium 8.5 mg/dL (8.6-10.3); Carbon Dioxide 25 mEq/L (23-29); Chloride 103 mEq/L (98-107); Globulin 2.4 g/dL (2.4-3.5); Glucose 104 mg/dL (70-105); Osmolality,Calculated 277 (280-300); Potassium 3.5 mEq/L (3.5-5.1); Sodium 133 mEq/L (136-145); Total Protein 4.9 g/dL (6.4-8.9)
[2022-04-28] MEDS: Aspirin 81 MG TAB.CHEW GTUBE SCH (08:56)
[2022-04-28] MEDS: *HR* HYDROcodone/Acet 5/325 mg TABLET GTUBE SCH ×3 (08:57→23:56)
[2022-04-28] MEDS: Ascorbic Acid 500 MG TABLET GTUBE SCH ×2 (08:57→16:08)
[2022-04-28] MEDS: carvediloL 6.25 MG TABLET GTUBE SCH ×2 (08:57→16:08)
[2022-04-28] MEDS: Gabapentin 100 MG CAPSULE PO SCH ×3 (08:57→21:40)
[2022-04-28] MEDS: Ferrous Sulfate Oral Soln 300 MG/5 ML UDC GTUBE SCH ×2 (08:57→16:08)
[2022-04-28] MEDS: Cyanocobalamin (B-12) 1,000 MCG TABLET GTUBE SCH (08:57)
[2022-04-28] MEDS: Cholecalciferol (D-3) 1,000 UNIT (25MCG) TABLET GTUBE SCH (08:58)
[2022-04-28] MEDS: Nystatin Cream 15 GM TUBE TP SCH ×3 (08:58→21:40)
[2022-04-28] MEDS: Simethicone 40 MG/0.6 ML MLS GTUBE SCH ×3 (08:58→23:56)
[2022-04-28] MEDS: Multivitamin Liquid 15 ML UDC GTUBE SCH (09:01)
[2022-04-29] MEDS: *HR* Heparin 5,000 UNIT/ML VIAL SQ SCH ×2 (05:28→16:55)
[2022-04-29] MEDS: Levothyroxine 25 MCG TABLET GTUBE SCH (05:28)
[2022-04-29] MEDS: Cholecalciferol (D-3) 1,000 UNIT (25MCG) TABLET GTUBE SCH (09:12)
[2022-04-29] MEDS: Cyanocobalamin (B-12) 1,000 MCG TABLET GTUBE SCH (09:12)
[2022-04-29] MEDS: carvediloL 6.25 MG TABLET GTUBE SCH ×2 (09:13→16:55)
[2022-04-29] MEDS: Multivitamin Liquid 15 ML UDC GTUBE SCH (09:13)
[2022-04-29] MEDS: Nystatin Cream 15 GM TUBE TP SCH ×3 (09:13→22:27)
[2022-04-29] MEDS: *HR* HYDROcodone/Acet 5/325 mg TABLET GTUBE SCH ×2 (09:13→16:55)
[2022-04-29] MEDS: Aspirin 81 MG TAB.CHEW GTUBE SCH (09:13)
[2022-04-29] MEDS: Gabapentin 100 MG CAPSULE PO SCH ×3 (09:13→22:25)
[2022-04-29] MEDS: Simethicone 40 MG/0.6 ML MLS GTUBE SCH ×2 (09:13→16:55)
[2022-04-29] MEDS: Ferrous Sulfate Oral Soln 300 MG/5 ML UDC GTUBE SCH ×2 (09:13→16:55)
[2022-04-29] MEDS: Ascorbic Acid 500 MG TABLET GTUBE SCH ×2 (09:13→16:55)
[2022-04-29] MEDS ORDERED: Lidocaine 4% CREAM (LMX) 5 GM TP ONE (12:54)
[2022-04-29] MEDS: Desitin (Zinc Oxide) Max 57 GM TUBE TP SCH ×2 (16:53→22:27)
[2022-04-29] MEDS: Lidocaine 4% CREAM (LMX) 5 GM TP SCH ×2 (16:54→22:27)
[2022-04-30] MEDS: Simethicone 40 MG/0.6 ML MLS GTUBE SCH ×3 (02:07→16:10)
[2022-04-30] MEDS: *HR* HYDROcodone/Acet 5/325 mg TABLET GTUBE SCH ×3 (02:07→16:10)
[2022-04-30] MEDS: *HR* Heparin 5,000 UNIT/ML VIAL SQ SCH (06:54)
[2022-04-30] MEDS: Aspirin 81 MG TAB.CHEW GTUBE SCH (09:03)
[2022-04-30] MEDS: Levothyroxine 25 MCG TABLET GTUBE SCH (09:04)
[2022-04-30] MEDS: Gabapentin 100 MG CAPSULE PO SCH ×3 (09:04→21:38)
[2022-04-30] MEDS: carvediloL 6.25 MG TABLET GTUBE SCH ×2 (09:04→16:10)
[2022-04-30] MEDS: Cholecalciferol (D-3) 1,000 UNIT (25MCG) TABLET GTUBE SCH (09:04)
[2022-04-30] MEDS: Cyanocobalamin (B-12) 1,000 MCG TABLET GTUBE SCH (09:04)
[2022-04-30] MEDS: Ascorbic Acid 500 MG TABLET GTUBE SCH ×2 (09:04→16:10)
[2022-04-30] MEDS: Desitin (Zinc Oxide) Max 57 GM TUBE TP SCH ×3 (09:05→22:08)
[2022-04-30] MEDS: Ferrous Sulfate Oral Soln 300 MG/5 ML UDC GTUBE SCH ×2 (09:05→16:10)
[2022-04-30] MEDS: Lidocaine 4% CREAM (LMX) 5 GM TP SCH ×3 (09:06→22:09)
[2022-04-30] MEDS: Multivitamin Liquid 15 ML UDC GTUBE SCH (09:06)
[2022-04-30] MEDS: Nystatin Cream 15 GM TUBE TP SCH ×3 (09:07→22:09)
[2022-04-30 09:34] LABS: Basophils % 0.4 %; Eosinophils # 0.2 K/mcL (0.0-0.6); Eosinophils % 1.6 %; Hematocrit 23.9 % (35.3-44.9); Hemoglobin 7.4 g/dL (11.5-15.4); Immature Granulocytes % 0.7 % (0-4); Lymphocytes # 1.9 K/mcL (0.6-4.6); Lymphocytes % 18.8 %; Mean Corpuscular Hemoglobin 31.4 pg (28.0-33.3); Mean Corpuscular Volume 101.3 fL (83.0-100.0); Mean Platelet Volume 8.3 fL (9.4-12.4); Monocytes # 0.9 K/mcL (0.0-1.3); Monocytes % 9.3 %; Neutrophils # 6.9 K/mcL (1.6-8.9); Platelet Count 539 K/mcL (140-400); Red Blood Count 2.36 M/mcL (3.82-4.97); Red Cell Distribution Width 16.3 % (11.5-14.5); Segmented Neutrophils % 69.2 %; White Blood Count 9.9 K/mcL (4.3-11.1)
[2022-04-30 10:05] LABS: BUN/Creatinine Ratio 58 (6-26); Blood Urea Nitrogen 15 mg/dL (8-23); Calcium 8.5 mg/dL (8.6-10.3); Carbon Dioxide 23 mEq/L (23-29); Chloride 103 mEq/L (98-107); Glucose 120 mg/dL (70-105); Magnesium 1.8 mg/dL (1.6-2.6); Osmolality,Calculated 276 (280-300); Phosphorous 3.8 mg/dL (2.7-4.5); Potassium 3.7 mEq/L (3.5-5.1); Sodium 132 mEq/L (136-145)
[2022-04-30] MEDS: Mirtazapine 15 MG TABLET PO SCH (21:39)
[2022-05-01] MEDS: Simethicone 40 MG/0.6 ML MLS GTUBE SCH ×3 (00:01→16:01)
[2022-05-01] MEDS: *HR* HYDROcodone/Acet 5/325 mg TABLET GTUBE SCH ×3 (00:02→15:56)
[2022-05-01] MEDS: D10% in Water 500 ML IVC SCH (02:07)
[2022-05-01] MEDS: Levothyroxine 25 MCG TABLET GTUBE SCH (05:33)
[2022-05-01] MEDS: Multivitamin Liquid 15 ML UDC GTUBE SCH (09:16)
[2022-05-01] MEDS: Aspirin 81 MG TAB.CHEW GTUBE SCH (09:17)
[2022-05-01] MEDS: Gabapentin 100 MG CAPSULE PO SCH ×3 (09:17→21:16)
[2022-05-01] MEDS: Cyanocobalamin (B-12) 1,000 MCG TABLET GTUBE SCH (09:17)
[2022-05-01] MEDS: Cholecalciferol (D-3) 1,000 UNIT (25MCG) TABLET GTUBE SCH (09:17)
[2022-05-01] MEDS: Ferrous Sulfate Oral Soln 300 MG/5 ML UDC GTUBE SCH ×2 (09:17→15:55)
[2022-05-01] MEDS: Ascorbic Acid 500 MG TABLET GTUBE SCH ×2 (09:18→15:56)
[2022-05-01] MEDS: carvediloL 6.25 MG TABLET GTUBE SCH ×2 (09:18→15:56)
[2022-05-01] MEDS: Desitin (Zinc Oxide) Max 57 GM TUBE TP SCH ×3 (09:20→21:50)
[2022-05-01] MEDS: Nystatin Cream 15 GM TUBE TP SCH ×3 (09:20→21:50)
[2022-05-01] MEDS: Lidocaine 4% CREAM (LMX) 5 GM TP SCH ×3 (09:21→21:51)
[2022-05-01] MEDS: Mirtazapine 15 MG TABLET PO SCH (21:16)
[2022-05-02] MEDS: *HR* HYDROcodone/Acet 5/325 mg TABLET GTUBE SCH ×3 (00:50→18:21)
[2022-05-02] MEDS: Simethicone 40 MG/0.6 ML MLS GTUBE SCH ×3 (00:50→18:22)
[2022-05-02 05:08] LABS: Basophils # 0.1 K/mcL (0.0-0.2); Basophils % 0.6 %; Eosinophils # 0.2 K/mcL (0.0-0.6); Eosinophils % 1.5 %; Hematocrit 25.2 % (35.3-44.9); Hemoglobin 7.6 g/dL (11.5-15.4); Immature Granulocytes % 0.6 % (0-4); Lymphocytes # 2.2 K/mcL (0.6-4.6); Lymphocytes % 20.9 %; Mean Corpuscular HGB Conc 30.2 g/dL (31.6-35.5); Mean Corpuscular Hemoglobin 30.3 pg (28.0-33.3); Mean Corpuscular Volume 100.4 fL (83.0-100.0); Mean Platelet Volume 8.6 fL (9.4-12.4); Monocytes # 0.9 K/mcL (0.0-1.3); Monocytes % 8.7 %; Nucleated Red Blood Cells 0.2 /100 WBC (0); Platelet Count 578 K/mcL (140-400); Red Blood Count 2.51 M/mcL (3.82-4.97); Red Cell Distribution Width 15.9 % (11.5-14.5); Segmented Neutrophils % 67.7 %; White Blood Count 10.4 K/mcL (4.3-11.1)
[2022-05-02 05:24] LABS: Alanine Aminotransferase 16 Units/L (7-52); Albumin 2.6 g/dL (3.5-5.7); Albumin/Globulin Ratio 1.1 (1.1-2.2); Alkaline Phosphatase 83 Units/L (34-104); Aspartate Amino Transferase 21 Units/L (13-39); BUN/Creatinine Ratio 46 (6-26); Bilirubin,Total 0.2 mg/dL (0.3-1.0); Blood Urea Nitrogen 13 mg/dL (8-23); Calcium 8.8 mg/dL (8.6-10.3); Carbon Dioxide 26 mEq/L (23-29); Chloride 104 mEq/L (98-107); Globulin 2.4 g/dL (2.4-3.5); Glucose 106 mg/dL (70-105); Osmolality,Calculated 281 (280-300); Potassium 3.7 mEq/L (3.5-5.1); Sodium 135 mEq/L (136-145)
[2022-05-02] MEDS: Levothyroxine 25 MCG TABLET GTUBE SCH (05:51)
[2022-05-02] MEDS: Ferrous Sulfate Oral Soln 300 MG/5 ML UDC GTUBE SCH ×2 (09:17→18:21)
[2022-05-02] MEDS: Cyanocobalamin (B-12) 1,000 MCG TABLET GTUBE SCH (09:17)
[2022-05-02] MEDS: Ascorbic Acid 500 MG TABLET GTUBE SCH ×2 (09:18→18:21)
[2022-05-02] MEDS: carvediloL 6.25 MG TABLET GTUBE SCH ×2 (09:18→18:21)
[2022-05-02] MEDS: Cholecalciferol (D-3) 1,000 UNIT (25MCG) TABLET GTUBE SCH (09:18)
[2022-05-02] MEDS: Aspirin 81 MG TAB.CHEW GTUBE SCH (09:18)
[2022-05-02] MEDS: Gabapentin 100 MG CAPSULE PO SCH ×3 (09:18→22:26)
[2022-05-02] MEDS: Lidocaine 4% CREAM (LMX) 5 GM TP SCH ×3 (09:19→22:26)
[2022-05-02] MEDS: Nystatin Cream 15 GM TUBE TP SCH ×3 (09:19→22:26)
[2022-05-02] MEDS: Multivitamin Liquid 15 ML UDC GTUBE SCH (09:19)
[2022-05-02] MEDS: Desitin (Zinc Oxide) Max 57 GM TUBE TP SCH ×3 (09:19→22:26)
[2022-05-02] MEDS: Mirtazapine 15 MG TABLET PO SCH (22:26)
[2022-05-03] MEDS: *HR* HYDROcodone/Acet 5/325 mg TABLET GTUBE SCH ×3 (00:44→15:08)
[2022-05-03] MEDS: Simethicone 40 MG/0.6 ML MLS GTUBE SCH ×4 (00:45→23:10)
[2022-05-03] MEDS: Levothyroxine 25 MCG TABLET GTUBE SCH (05:30)
[2022-05-03] MEDS: Ferrous Sulfate Oral Soln 300 MG/5 ML UDC GTUBE SCH ×2 (09:31→18:26)
[2022-05-03] MEDS: Gabapentin 100 MG CAPSULE PO SCH ×3 (09:32→19:53)
[2022-05-03] MEDS: Ascorbic Acid 500 MG TABLET GTUBE SCH ×2 (09:32→18:26)
[2022-05-03] MEDS: carvediloL 6.25 MG TABLET GTUBE SCH ×2 (09:32→18:26)
[2022-05-03] MEDS: Aspirin 81 MG TAB.CHEW GTUBE SCH (09:32)
[2022-05-03] MEDS: Cyanocobalamin (B-12) 1,000 MCG TABLET GTUBE SCH (09:33)
[2022-05-03] MEDS: Cholecalciferol (D-3) 1,000 UNIT (25MCG) TABLET GTUBE SCH (09:33)
[2022-05-03] MEDS: Nystatin Cream 15 GM TUBE TP SCH ×3 (09:33→19:57)
[2022-05-03] MEDS: Lidocaine 4% CREAM (LMX) 5 GM TP SCH ×3 (09:34→19:59)
[2022-05-03] MEDS: Multivitamin Liquid 15 ML UDC GTUBE SCH (09:34)
[2022-05-03] MEDS: Desitin (Zinc Oxide) Max 57 GM TUBE TP SCH ×3 (09:34→19:57)
[2022-05-03] MEDS: D10% in Water 500 ML IVC SCH (10:13)
[2022-05-03] MEDS: Mirtazapine 15 MG TABLET PO SCH (19:52)
[2022-05-04] MEDS: Levothyroxine 25 MCG TABLET GTUBE SCH (05:10)
[2022-05-04] MEDS: Simethicone 40 MG/0.6 ML MLS GTUBE SCH ×3 (09:03→23:44)
[2022-05-04] MEDS: Ferrous Sulfate Oral Soln 300 MG/5 ML UDC GTUBE SCH ×2 (09:03→15:26)
[2022-05-04] MEDS: Cyanocobalamin (B-12) 1,000 MCG TABLET GTUBE SCH (09:04)
[2022-05-04] MEDS: Aspirin 81 MG TAB.CHEW GTUBE SCH (09:04)
[2022-05-04] MEDS: Nystatin Cream 15 GM TUBE TP SCH ×3 (09:04→20:32)
[2022-05-04] MEDS: Cholecalciferol (D-3) 1,000 UNIT (25MCG) TABLET GTUBE SCH (09:04)
[2022-05-04] MEDS: Gabapentin 100 MG CAPSULE PO SCH ×3 (09:04→20:31)
[2022-05-04] MEDS: carvediloL 6.25 MG TABLET GTUBE SCH ×2 (09:04→15:27)
[2022-05-04] MEDS: Ascorbic Acid 500 MG TABLET GTUBE SCH ×2 (09:04→15:27)
[2022-05-04] MEDS: Lidocaine 4% CREAM (LMX) 5 GM TP SCH ×3 (09:04→20:32)
[2022-05-04] MEDS: Desitin (Zinc Oxide) Max 57 GM TUBE TP SCH ×3 (09:05→20:32)
[2022-05-04] MEDS: Multivitamin Liquid 15 ML UDC GTUBE SCH (09:05)
[2022-05-04] MEDS: *HR* HYDROcodone/Acet 5/325 mg TABLET GTUBE SCH ×2 (15:27→23:44)
[2022-05-04] MEDS: Mirtazapine 15 MG TABLET PO SCH (20:31)
[2022-05-05 05:01] LABS: Basophils # 0.1 K/mcL (0.0-0.2); Basophils % 0.8 %; Eosinophils # 0.3 K/mcL (0.0-0.6); Eosinophils % 3.1 %; Hematocrit 26.3 % (35.3-44.9); Hemoglobin 7.7 g/dL (11.5-15.4); Immature Granulocytes % 0.5 % (0-4); Lymphocytes # 2.4 K/mcL (0.6-4.6); Lymphocytes % 23.5 %; Mean Corpuscular HGB Conc 29.3 g/dL (31.6-35.5); Mean Corpuscular Hemoglobin 30.8 pg (28.0-33.3); Mean Corpuscular Volume 105.2 fL (83.0-100.0); Mean Platelet Volume 8.6 fL (9.4-12.4); Monocytes % 9.7 %; Neutrophils # 6.5 K/mcL (1.6-8.9); Platelet Count 506 K/mcL (140-400); Red Cell Distribution Width 16.1 % (11.5-14.5); Segmented Neutrophils % 62.4 %; White Blood Count 10.4 K/mcL (4.3-11.1)
[2022-05-05] MEDS: Levothyroxine 25 MCG TABLET GTUBE SCH (05:06)
[2022-05-05 05:14] LABS: BUN/Creatinine Ratio 57 (6-26); Blood Urea Nitrogen 13 mg/dL (8-23); Calcium 8.7 mg/dL (8.6-10.3); Carbon Dioxide 25 mEq/L (23-29); Chloride 105 mEq/L (98-107); Glucose 110 mg/dL (70-105); Osmolality,Calculated 281 (280-300); Sodium 135 mEq/L (136-145)
[2022-05-05] MEDS: Ascorbic Acid 500 MG TABLET GTUBE SCH ×2 (08:22→16:34)
[2022-05-05] MEDS: Cholecalciferol (D-3) 1,000 UNIT (25MCG) TABLET GTUBE SCH (08:22)
[2022-05-05] MEDS: *HR* HYDROcodone/Acet 5/325 mg TABLET GTUBE SCH ×2 (08:22→16:35)
[2022-05-05] MEDS: carvediloL 6.25 MG TABLET GTUBE SCH ×2 (08:22→16:35)
[2022-05-05] MEDS: Ferrous Sulfate Oral Soln 300 MG/5 ML UDC GTUBE SCH ×2 (08:22→16:34)
[2022-05-05] MEDS: Aspirin 81 MG TAB.CHEW GTUBE SCH (08:22)
[2022-05-05] MEDS: Multivitamin Liquid 15 ML UDC GTUBE SCH (08:23)
[2022-05-05] MEDS: Gabapentin 100 MG CAPSULE PO SCH ×3 (08:23→21:48)
[2022-05-05] MEDS: Simethicone 40 MG/0.6 ML MLS GTUBE SCH ×2 (08:23→16:34)
[2022-05-05] MEDS: Nystatin Cream 15 GM TUBE TP SCH ×3 (08:23→21:48)
[2022-05-05] MEDS: Cyanocobalamin (B-12) 1,000 MCG TABLET GTUBE SCH (08:23)
[2022-05-05] MEDS: Lidocaine 4% CREAM (LMX) 5 GM TP SCH ×3 (08:23→21:03)
[2022-05-05] MEDS: Desitin (Zinc Oxide) Max 57 GM TUBE TP SCH ×3 (08:23→21:03)
[2022-05-05] MEDS: Mirtazapine 15 MG TABLET PO SCH (21:49)
[2022-05-06] MEDS: *HR* HYDROcodone/Acet 5/325 mg TABLET GTUBE SCH ×3 (00:33→15:08)
[2022-05-06] MEDS: Simethicone 40 MG/0.6 ML MLS GTUBE SCH ×3 (00:34→15:24)
[2022-05-06] MEDS: Levothyroxine 25 MCG TABLET GTUBE SCH (05:26)
[2022-05-06] MEDS: Multivitamin Liquid 15 ML UDC GTUBE SCH (09:28)
[2022-05-06] MEDS: Ferrous Sulfate Oral Soln 300 MG/5 ML UDC GTUBE SCH ×2 (09:28→16:53)
[2022-05-06] MEDS: Aspirin 81 MG TAB.CHEW GTUBE SCH (09:29)
[2022-05-06] MEDS: Ascorbic Acid 500 MG TABLET GTUBE SCH ×2 (09:29→16:53)
[2022-05-06] MEDS: Gabapentin 100 MG CAPSULE PO SCH ×3 (09:29→22:20)
[2022-05-06] MEDS: Cyanocobalamin (B-12) 1,000 MCG TABLET GTUBE SCH (09:29)
[2022-05-06] MEDS: Desitin (Zinc Oxide) Max 57 GM TUBE TP SCH ×3 (09:29→22:22)
[2022-05-06] MEDS: Cholecalciferol (D-3) 1,000 UNIT (25MCG) TABLET GTUBE SCH (09:29)
[2022-05-06] MEDS: Lidocaine 4% CREAM (LMX) 5 GM TP SCH ×3 (09:29→22:21)
[2022-05-06] MEDS: carvediloL 6.25 MG TABLET GTUBE SCH ×2 (09:29→16:53)
[2022-05-06] MEDS: Nystatin Cream 15 GM TUBE TP SCH ×3 (09:30→22:20)
[2022-05-06] MEDS: Mirtazapine 15 MG TABLET PO SCH (22:20)
[2022-05-07] MEDS: *HR* HYDROcodone/Acet 5/325 mg TABLET GTUBE SCH ×2 (00:12→09:35)
[2022-05-07] MEDS: Simethicone 40 MG/0.6 ML MLS GTUBE SCH ×2 (00:12→09:35)
[2022-05-07 05:06] LABS: Hematocrit 25.3 % (35.3-44.9); Hemoglobin 7.5 g/dL (11.5-15.4); Mean Corpuscular HGB Conc 29.6 g/dL (31.6-35.5); Mean Corpuscular Hemoglobin 29.8 pg (28.0-33.3); Mean Corpuscular Volume 100.4 fL (83.0-100.0); Mean Platelet Volume 8.6 fL (9.4-12.4); Platelet Count 560 K/mcL (140-400); Red Blood Count 2.52 M/mcL (3.82-4.97); Red Cell Distribution Width 15.9 % (11.5-14.5); White Blood Count 11.2 K/mcL (4.3-11.1)
[2022-05-07 05:22] LABS: Magnesium 1.9 mg/dL (1.6-2.6); Phosphorous 3.6 mg/dL (2.7-4.5)
[2022-05-07] MEDS: Levothyroxine 25 MCG TABLET GTUBE SCH (05:33)
[2022-05-07] MEDS: Multivitamin Liquid 15 ML UDC GTUBE SCH (09:35)
[2022-05-07] MEDS: carvediloL 6.25 MG TABLET GTUBE SCH (09:35)
[2022-05-07] MEDS: Ascorbic Acid 500 MG TABLET GTUBE SCH (09:35)
[2022-05-07] MEDS: Aspirin 81 MG TAB.CHEW GTUBE SCH (09:35)
[2022-05-07] MEDS: Ferrous Sulfate Oral Soln 300 MG/5 ML UDC GTUBE SCH (09:35)
[2022-05-07] MEDS: Gabapentin 100 MG CAPSULE PO SCH ×3 (09:35→20:34)
[2022-05-07] MEDS: Cholecalciferol (D-3) 1,000 UNIT (25MCG) TABLET GTUBE SCH (09:35)
[2022-05-07] MEDS: Desitin (Zinc Oxide) Max 57 GM TUBE TP SCH ×3 (09:36→20:43)
[2022-05-07] MEDS: Cyanocobalamin (B-12) 1,000 MCG TABLET GTUBE SCH (09:36)
[2022-05-07] MEDS: Nystatin Cream 15 GM TUBE TP SCH ×2 (09:36→17:11)
[2022-05-07] MEDS: Lidocaine 4% CREAM (LMX) 5 GM TP SCH ×3 (09:36→22:27)
[2022-05-07] MEDS ORDERED: polyethylene glycoL 3350 17 GM POWD.PACK PO PRN (14:23)
[2022-05-07] MEDS ORDERED: MOM Conc 10 ML UD.LIQ PO PRN (14:23)
[2022-05-07] MEDS ORDERED: Sennosides/Docusate Sodium TABLET PO PRN (14:23)
[2022-05-07] MEDS: Simethicone 80 MG TAB.CHEW PO SCH (17:10)
[2022-05-07] MEDS: Ascorbic Acid 500 MG TABLET PO SCH (17:10)
[2022-05-07] MEDS: *HR* HYDROcodone/Acet 5/325 mg TABLET PO SCH (17:11)
[2022-05-07] MEDS: carvediloL 6.25 MG TABLET PO SCH (17:11)
[2022-05-07] MEDS: Mirtazapine 15 MG TABLET PO SCH (20:35)
[2022-05-08] MEDS: *HR* HYDROcodone/Acet 5/325 mg TABLET PO SCH ×4 (00:14→22:41)
[2022-05-08] MEDS: Simethicone 80 MG TAB.CHEW PO SCH ×4 (00:14→22:41)
[2022-05-08] MEDS: Nystatin Cream 15 GM TUBE TP SCH ×4 (00:26→22:42)
[2022-05-08] MEDS: Levothyroxine 25 MCG TABLET PO SCH (05:48)
[2022-05-08] MEDS: Multivitamin Liquid 15 ML UDC GTUBE SCH (10:04)
[2022-05-08] MEDS: Cholecalciferol (D-3) 1,000 UNIT (25MCG) TABLET PO SCH ×2 (10:06→11:40)
[2022-05-08] MEDS: Aspirin 81 MG TAB.CHEW PO SCH ×2 (10:07→11:40)
[2022-05-08] MEDS: Gabapentin 100 MG CAPSULE PO SCH ×3 (10:07→22:41)
[2022-05-08] MEDS: Cyanocobalamin (B-12) 1,000 MCG TABLET PO SCH ×2 (10:07→11:40)
[2022-05-08] MEDS: Ascorbic Acid 500 MG TABLET PO SCH ×3 (10:08→17:07)
[2022-05-08] MEDS: carvediloL 6.25 MG TABLET PO SCH ×2 (10:15→17:07)
[2022-05-08] MEDS: Lidocaine 4% CREAM (LMX) 5 GM TP SCH ×3 (10:15→22:42)
[2022-05-08] MEDS: Desitin (Zinc Oxide) Max 57 GM TUBE TP SCH ×3 (11:54→22:42)
[2022-05-08] MEDS: Mirtazapine 15 MG TABLET PO SCH (22:41)
[2022-05-09] MEDS: *HR* HYDROcodone/Acet 5/325 mg TABLET PO SCH ×3 (05:31→20:29)
[2022-05-09] MEDS: Levothyroxine 25 MCG TABLET PO SCH (05:31)
[2022-05-09] MEDS: Simethicone 80 MG TAB.CHEW PO SCH ×3 (05:32→20:29)
[2022-05-09] MEDS: *HR* Enoxaparin 40 MG/0.4 ML SYRINGE SQ SCH (05:32)
[2022-05-09 05:33] LABS: Hematocrit 26.2 % (35.3-44.9); Hemoglobin 7.8 g/dL (11.5-15.4); Mean Corpuscular HGB Conc 29.8 g/dL (31.6-35.5); Mean Corpuscular Hemoglobin 29.3 pg (28.0-33.3); Mean Corpuscular Volume 98.5 fL (83.0-100.0); Mean Platelet Volume 8.6 fL (9.4-12.4); Platelet Count 558 K/mcL (140-400); Red Blood Count 2.66 M/mcL (3.82-4.97); Red Cell Distribution Width 15.9 % (11.5-14.5); White Blood Count 10.5 K/mcL (4.3-11.1)
[2022-05-09 05:55] LABS: Alanine Aminotransferase 10 Units/L (7-52); Albumin 2.8 g/dL (3.5-5.7); Albumin/Globulin Ratio 1.2 (1.1-2.2); Alkaline Phosphatase 71 Units/L (34-104); Aspartate Amino Transferase 16 Units/L (13-39); BUN/Creatinine Ratio 43 (6-26); Bilirubin,Total 0.2 mg/dL (0.3-1.0); Blood Urea Nitrogen 13 mg/dL (8-23); Calcium 8.8 mg/dL (8.6-10.3); Carbon Dioxide 25 mEq/L (23-29); Chloride 105 mEq/L (98-107); Globulin 2.4 g/dL (2.4-3.5); Glucose 92 mg/dL (70-105); Magnesium 1.9 mg/dL (1.6-2.6); Osmolality,Calculated 280 (280-300); Potassium 3.8 mEq/L (3.5-5.1); Sodium 135 mEq/L (136-145); Total Protein 5.2 g/dL (6.4-8.9)
[2022-05-09 08:17] LABS: % Iron Saturation 5 % (15-50); Iron 16 mcg/dL (50-170); Transferrin 242 mg/dL (203-362)
[2022-05-09] MEDS: Gabapentin 100 MG CAPSULE PO SCH ×3 (08:35→20:29)
[2022-05-09] MEDS: Aspirin 81 MG TAB.CHEW PO SCH (08:35)
[2022-05-09] MEDS: Cyanocobalamin (B-12) 1,000 MCG TABLET PO SCH (08:35)
[2022-05-09] MEDS: Cholecalciferol (D-3) 1,000 UNIT (25MCG) TABLET PO SCH (08:35)
[2022-05-09] MEDS: Ascorbic Acid 500 MG TABLET PO SCH ×2 (08:36→16:25)
[2022-05-09] MEDS: carvediloL 6.25 MG TABLET PO SCH ×2 (08:36→16:25)
[2022-05-09] MEDS: Multivitamin Liquid 15 ML UDC GTUBE SCH (08:36)
[2022-05-09] MEDS: Desitin (Zinc Oxide) Max 57 GM TUBE TP SCH ×3 (08:37→20:28)
[2022-05-09] MEDS: Lidocaine 4% CREAM (LMX) 5 GM TP SCH ×3 (08:38→20:28)
[2022-05-09] MEDS: Nystatin Cream 15 GM TUBE TP SCH ×3 (08:38→20:27)
[2022-05-09 19:30] LABS: Folate 20.3 ng/mL (3.0-16.0)
[2022-05-09] MEDS: Mirtazapine 15 MG TABLET PO SCH (20:29)
[2022-05-10] MEDS: Simethicone 80 MG TAB.CHEW PO SCH ×3 (04:08→20:38)
[2022-05-10] MEDS: *HR* HYDROcodone/Acet 5/325 mg TABLET PO SCH ×3 (04:08→20:38)
[2022-05-10] MEDS: Levothyroxine 25 MCG TABLET PO SCH (05:34)
[2022-05-10] MEDS: *HR* Enoxaparin 40 MG/0.4 ML SYRINGE SQ SCH (05:34)
[2022-05-10] MEDS ORDERED: Iron Sucrose Complex 200 MG in 0.9 % Sodium Chloride 100 ML IVPB SCH (09:00)
[2022-05-10] MEDS: Aspirin 81 MG TAB.CHEW PO SCH (09:56)
[2022-05-10] MEDS: Gabapentin 100 MG CAPSULE PO SCH ×3 (09:56→20:39)
[2022-05-10] MEDS: Multivitamin Liquid 15 ML UDC GTUBE SCH (09:56)
[2022-05-10] MEDS: carvediloL 6.25 MG TABLET PO SCH ×2 (09:56→15:55)
[2022-05-10] MEDS: Ascorbic Acid 500 MG TABLET PO SCH ×2 (09:56→15:56)
[2022-05-10] MEDS: Cyanocobalamin (B-12) 1,000 MCG TABLET PO SCH (09:57)
[2022-05-10] MEDS: Cholecalciferol (D-3) 1,000 UNIT (25MCG) TABLET PO SCH (09:58)
[2022-05-10] MEDS: Desitin (Zinc Oxide) Max 57 GM TUBE TP SCH ×3 (10:03→20:37)
[2022-05-10] MEDS: Nystatin Cream 15 GM TUBE TP SCH ×3 (10:03→20:36)
[2022-05-10] MEDS: Lidocaine 4% CREAM (LMX) 5 GM TP SCH ×3 (10:03→20:37)
[2022-05-10] MEDS: Iron Sucrose Complex 200 MG in 0.9 % Sodium Chloride 100 ML IVPB SCH (10:20)
[2022-05-10] MEDS: Mirtazapine 15 MG TABLET PO SCH (20:38)
[2022-05-11] MEDS: Simethicone 80 MG TAB.CHEW PO SCH ×3 (05:22→20:25)
[2022-05-11] MEDS: Levothyroxine 25 MCG TABLET PO SCH (05:22)
[2022-05-11] MEDS: *HR* Enoxaparin 40 MG/0.4 ML SYRINGE SQ SCH (05:22)
[2022-05-11] MEDS: *HR* HYDROcodone/Acet 5/325 mg TABLET PO SCH ×3 (05:22→20:25)
[2022-05-11] MEDS: Multivitamin Liquid 15 ML UDC GTUBE SCH (09:37)
[2022-05-11] MEDS: Aspirin 81 MG TAB.CHEW PO SCH (09:37)
[2022-05-11] MEDS: Ascorbic Acid 500 MG TABLET PO SCH ×2 (09:37→18:29)
[2022-05-11] MEDS: Cholecalciferol (D-3) 1,000 UNIT (25MCG) TABLET PO SCH (09:38)
[2022-05-11] MEDS: carvediloL 6.25 MG TABLET PO SCH ×2 (09:38→18:29)
[2022-05-11] MEDS: Gabapentin 100 MG CAPSULE PO SCH ×3 (09:38→20:26)
[2022-05-11] MEDS: Cyanocobalamin (B-12) 1,000 MCG TABLET PO SCH (09:38)
[2022-05-11] MEDS: Nystatin Cream 15 GM TUBE TP SCH ×3 (09:39→20:26)
[2022-05-11] MEDS: Lidocaine 4% CREAM (LMX) 5 GM TP SCH ×3 (09:40→20:27)
[2022-05-11] MEDS: Desitin (Zinc Oxide) Max 57 GM TUBE TP SCH ×3 (09:40→20:27)
[2022-05-11] MEDS: Iron Sucrose Complex 200 MG in 0.9 % Sodium Chloride 100 ML IVPB SCH (13:52)
[2022-05-11] MEDS: Mirtazapine 15 MG TABLET PO SCH (20:26)
[2022-05-12 05:05] LABS: Hematocrit 28.9 % (35.3-44.9); Hemoglobin 8.5 g/dL (11.5-15.4); Mean Corpuscular HGB Conc 29.4 g/dL (31.6-35.5); Mean Corpuscular Hemoglobin 29.2 pg (28.0-33.3); Mean Corpuscular Volume 99.3 fL (83.0-100.0); Mean Platelet Volume 8.7 fL (9.4-12.4); Platelet Count 636 K/mcL (140-400); Red Blood Count 2.91 M/mcL (3.82-4.97); Red Cell Distribution Width 16.3 % (11.5-14.5); White Blood Count 10.4 K/mcL (4.3-11.1)
[2022-05-12] MEDS: Simethicone 80 MG TAB.CHEW PO SCH ×3 (05:11→22:14)
[2022-05-12] MEDS: *HR* Enoxaparin 40 MG/0.4 ML SYRINGE SQ SCH (05:11)
[2022-05-12] MEDS: *HR* HYDROcodone/Acet 5/325 mg TABLET PO SCH ×3 (05:11→22:15)
[2022-05-12] MEDS: Levothyroxine 25 MCG TABLET PO SCH (05:11)
[2022-05-12 05:19] LABS: BUN/Creatinine Ratio 41 (6-26); Blood Urea Nitrogen 13 mg/dL (8-23); Calcium 9.1 mg/dL (8.6-10.3); Carbon Dioxide 24 mEq/L (23-29); Chloride 105 mEq/L (98-107); Glucose 81 mg/dL (70-105); Magnesium 1.8 mg/dL (1.6-2.6); Osmolality,Calculated 281 (280-300); Potassium 3.8 mEq/L (3.5-5.1); Sodium 136 mEq/L (136-145)
[2022-05-12] MEDS: carvediloL 6.25 MG TABLET PO SCH ×2 (09:54→15:09)
[2022-05-12] MEDS: Aspirin 81 MG TAB.CHEW PO SCH (09:54)
[2022-05-12] MEDS: Cholecalciferol (D-3) 1,000 UNIT (25MCG) TABLET PO SCH (09:54)
[2022-05-12] MEDS: Cyanocobalamin (B-12) 1,000 MCG TABLET PO SCH (09:54)
[2022-05-12] MEDS: Ascorbic Acid 500 MG TABLET PO SCH ×2 (09:54→15:10)
[2022-05-12] MEDS: Gabapentin 100 MG CAPSULE PO SCH ×3 (09:54→22:15)
[2022-05-12] MEDS: Multivitamin Liquid 15 ML UDC GTUBE SCH (09:55)
[2022-05-12] MEDS: Nystatin Cream 15 GM TUBE TP SCH ×3 (09:56→22:15)
[2022-05-12] MEDS: Lidocaine 4% CREAM (LMX) 5 GM TP SCH ×3 (09:56→22:15)
[2022-05-12] MEDS: Desitin (Zinc Oxide) Max 57 GM TUBE TP SCH ×3 (09:56→22:15)
[2022-05-12] MEDS: Iron Sucrose Complex 200 MG in 0.9 % Sodium Chloride 100 ML IVPB SCH (15:28)
[2022-05-12] MEDS: Mirtazapine 15 MG TABLET PO SCH (22:15)
[2022-05-13] MEDS: Levothyroxine 25 MCG TABLET PO SCH (05:42)
[2022-05-13] MEDS: Simethicone 80 MG TAB.CHEW PO SCH ×3 (05:42→20:03)
[2022-05-13] MEDS: *HR* Enoxaparin 40 MG/0.4 ML SYRINGE SQ SCH (05:42)
[2022-05-13] MEDS: *HR* HYDROcodone/Acet 5/325 mg TABLET PO SCH ×3 (05:42→20:02)
[2022-05-13] MEDS: Aspirin 81 MG TAB.CHEW PO SCH (08:58)
[2022-05-13] MEDS: Cyanocobalamin (B-12) 1,000 MCG TABLET PO SCH (08:58)
[2022-05-13] MEDS: Cholecalciferol (D-3) 1,000 UNIT (25MCG) TABLET PO SCH (08:58)
[2022-05-13] MEDS: Ascorbic Acid 500 MG TABLET PO SCH ×2 (08:58→17:21)
[2022-05-13] MEDS: Gabapentin 100 MG CAPSULE PO SCH ×3 (08:58→20:03)
[2022-05-13] MEDS: carvediloL 6.25 MG TABLET PO SCH ×2 (08:59→17:22)
[2022-05-13] MEDS: Multivitamin Liquid 15 ML UDC GTUBE SCH (09:00)
[2022-05-13] MEDS: Lidocaine 4% CREAM (LMX) 5 GM TP SCH ×3 (09:01→20:06)
[2022-05-13] MEDS: Desitin (Zinc Oxide) Max 57 GM TUBE TP SCH ×3 (09:01→20:05)
[2022-05-13] MEDS: Nystatin Cream 15 GM TUBE TP SCH ×3 (09:24→20:05)
[2022-05-13] MEDS: Iron Sucrose Complex 200 MG in 0.9 % Sodium Chloride 100 ML IVPB SCH (12:01)
[2022-05-13] MEDS: Mirtazapine 15 MG TABLET PO SCH (20:03)
[2022-05-14] MEDS: Simethicone 80 MG TAB.CHEW PO SCH ×3 (04:10→21:06)
[2022-05-14] MEDS: *HR* HYDROcodone/Acet 5/325 mg TABLET PO SCH ×3 (04:11→21:06)
[2022-05-14] MEDS: Levothyroxine 25 MCG TABLET PO SCH (06:26)
[2022-05-14] MEDS: *HR* Enoxaparin 40 MG/0.4 ML SYRINGE SQ SCH (06:26)
[2022-05-14] MEDS: Cyanocobalamin (B-12) 1,000 MCG TABLET PO SCH (08:12)
[2022-05-14] MEDS: Ascorbic Acid 500 MG TABLET PO SCH (08:12)
[2022-05-14] MEDS: Cholecalciferol (D-3) 1,000 UNIT (25MCG) TABLET PO SCH (08:12)
[2022-05-14] MEDS: Gabapentin 100 MG CAPSULE PO SCH ×3 (08:12→21:07)
[2022-05-14] MEDS: carvediloL 6.25 MG TABLET PO SCH ×2 (08:12→16:26)
[2022-05-14] MEDS: Aspirin 81 MG TAB.CHEW PO SCH (08:12)
[2022-05-14] MEDS: Multivitamin Liquid 15 ML UDC GTUBE SCH (08:12)
[2022-05-14] MEDS: Nystatin Cream 15 GM TUBE TP SCH ×3 (08:13→21:07)
[2022-05-14] MEDS: Desitin (Zinc Oxide) Max 57 GM TUBE TP SCH ×3 (08:13→21:09)
[2022-05-14] MEDS: Lidocaine 4% CREAM (LMX) 5 GM TP SCH ×3 (08:13→21:08)
[2022-05-14] MEDS ORDERED: Ondansetron 4 MG/2 ML VIAL IVP PRN ×2 (09:20→09:43)
[2022-05-14] MEDS ORDERED: Ondansetron ODT 4 MG TAB.RAPDIS SL PRN (09:42)
[2022-05-14] MEDS: Iron Sucrose Complex 200 MG in 0.9 % Sodium Chloride 100 ML IVPB SCH (12:03)
[2022-05-14] MEDS ORDERED: ALPRAZolam 0.25 MG TABLET PO PRN (14:59)
[2022-05-14] MEDS ORDERED: polyethylene glycoL 3350 17 GM POWD.PACK PO SCH (15:00)
[2022-05-14 16:50] LABS: Bilirubin,Urine Negative (Negative); Blood,Urine Moderate (Negative); Clarity,Urine Clear (Clear); Color,Urine Yellow (Yellow); Glucose,Urine (UA) Normal (Normal); Ketones,Urine Negative (Negative); Leukocyte Esterase,Urine Small (Negative); Nitrite,Urine Positive (Negative); Protein,Urine 30 mg/dL (Neg-Trace); Specific Gravity,Urine >= 1.030 (1.010-1.025); Urobilinogen,Urine Normal (Normal)
[2022-05-14 17:00] LABS: Bacteria,Urine Many per hpf (None-Few); Squamous Epithelial Cell,Urine Moderate per hpf (None-Few); WBC,Urine TNTC per hpf (0-3)
[2022-05-14] MEDS: Mirtazapine 15 MG TABLET PO SCH (21:09)
[2022-05-14] MEDS: Sennosides 8.6 MG TABLET PO SCH (21:10)
[2022-05-15 04:18] LABS: Hematocrit 25.8 % (35.3-44.9); Hemoglobin 7.5 g/dL (11.5-15.4); Mean Corpuscular HGB Conc 29.1 g/dL (31.6-35.5); Mean Corpuscular Hemoglobin 29.4 pg (28.0-33.3); Mean Corpuscular Volume 101.2 fL (83.0-100.0); Mean Platelet Volume 8.6 fL (9.4-12.4); Platelet Count 559 K/mcL (140-400); Red Blood Count 2.55 M/mcL (3.82-4.97); Red Cell Distribution Width 16.8 % (11.5-14.5); White Blood Count 10.7 K/mcL (4.3-11.1)
[2022-05-15 04:35] LABS: Alanine Aminotransferase 11 Units/L (7-52); Albumin 2.5 g/dL (3.5-5.7); Albumin/Globulin Ratio 1.2 (1.1-2.2); Alkaline Phosphatase 64 Units/L (34-104); Aspartate Amino Transferase 14 Units/L (13-39); BUN/Creatinine Ratio 40 (6-26); Bilirubin,Total 0.2 mg/dL (0.3-1.0); Blood Urea Nitrogen 14 mg/dL (8-23); Calcium 8.5 mg/dL (8.6-10.3); Carbon Dioxide 26 mEq/L (23-29); Chloride 104 mEq/L (98-107); Globulin 2.1 g/dL (2.4-3.5); Glucose 86 mg/dL (70-105); Magnesium 1.7 mg/dL (1.6-2.6); Osmolality,Calculated 280 (280-300); Potassium 3.8 mEq/L (3.5-5.1); Sodium 135 mEq/L (136-145); Total Protein 4.6 g/dL (6.4-8.9)
[2022-05-15] MEDS: *HR* Enoxaparin 40 MG/0.4 ML SYRINGE SQ SCH (05:08)
[2022-05-15] MEDS: *HR* HYDROcodone/Acet 5/325 mg TABLET PO SCH ×3 (05:09→21:30)
[2022-05-15] MEDS: Levothyroxine 25 MCG TABLET PO SCH (05:09)
[2022-05-15] MEDS: Simethicone 80 MG TAB.CHEW PO SCH ×3 (05:09→21:30)
[2022-05-15] MEDS: Aspirin 81 MG TAB.CHEW PO SCH (09:32)
[2022-05-15] MEDS: Multivitamin Liquid 15 ML UDC GTUBE SCH (09:32)
[2022-05-15] MEDS: carvediloL 6.25 MG TABLET PO SCH ×2 (09:33→17:58)
[2022-05-15] MEDS: Cyanocobalamin (B-12) 1,000 MCG TABLET PO SCH (09:33)
[2022-05-15] MEDS: Gabapentin 100 MG CAPSULE PO SCH ×3 (09:33→21:30)
[2022-05-15] MEDS: Cholecalciferol (D-3) 1,000 UNIT (25MCG) TABLET PO SCH (09:33)
[2022-05-15] MEDS: Lidocaine 4% CREAM (LMX) 5 GM TP SCH ×3 (09:34→21:32)
[2022-05-15] MEDS: Desitin (Zinc Oxide) Max 57 GM TUBE TP SCH ×3 (09:34→21:32)
[2022-05-15] MEDS: polyethylene glycoL 3350 17 GM POWD.PACK PO SCH (09:35)
[2022-05-15] MEDS: Sennosides 8.6 MG TABLET PO SCH ×2 (09:36→21:30)
[2022-05-15] MEDS: Nystatin Cream 15 GM TUBE TP SCH ×3 (09:36→21:31)
[2022-05-15] MEDS: Mirtazapine 15 MG TABLET PO SCH (21:31)
[2022-05-16] MEDS: Simethicone 80 MG TAB.CHEW PO SCH ×3 (04:41→19:54)
[2022-05-16] MEDS: *HR* HYDROcodone/Acet 5/325 mg TABLET PO SCH ×3 (04:41→19:55)
[2022-05-16] MEDS: *HR* Enoxaparin 40 MG/0.4 ML SYRINGE SQ SCH (04:42)
[2022-05-16] MEDS: Levothyroxine 25 MCG TABLET PO SCH (04:42)
[2022-05-16] MEDS: Cholecalciferol (D-3) 1,000 UNIT (25MCG) TABLET PO SCH (08:38)
[2022-05-16] MEDS: Aspirin 81 MG TAB.CHEW PO SCH (08:38)
[2022-05-16] MEDS: Multivitamin Liquid 15 ML UDC GTUBE SCH (08:38)
[2022-05-16] MEDS: Sennosides 8.6 MG TABLET PO SCH ×2 (08:38→19:54)
[2022-05-16] MEDS: Cyanocobalamin (B-12) 1,000 MCG TABLET PO SCH (08:39)
[2022-05-16] MEDS: Gabapentin 100 MG CAPSULE PO SCH ×3 (08:39→19:54)
[2022-05-16] MEDS: carvediloL 6.25 MG TABLET PO SCH ×2 (08:39→16:41)
[2022-05-16] MEDS: Desitin (Zinc Oxide) Max 57 GM TUBE TP SCH ×3 (08:40→21:30)
[2022-05-16] MEDS: Lidocaine 4% CREAM (LMX) 5 GM TP SCH ×3 (08:40→21:30)
[2022-05-16] MEDS: Nystatin Cream 15 GM TUBE TP SCH ×3 (08:40→21:31)
[2022-05-16] MEDS: polyethylene glycoL 3350 17 GM POWD.PACK PO SCH (08:40)
[2022-05-16] MEDS: Mirtazapine 15 MG TABLET PO SCH (19:54)
[2022-05-17] MEDS: Simethicone 80 MG TAB.CHEW PO SCH ×3 (05:37→20:21)
[2022-05-17] MEDS: *HR* HYDROcodone/Acet 5/325 mg TABLET PO SCH ×3 (05:37→20:21)
[2022-05-17] MEDS: *HR* Enoxaparin 40 MG/0.4 ML SYRINGE SQ SCH (05:38)
[2022-05-17] MEDS: Levothyroxine 25 MCG TABLET PO SCH (05:38)
[2022-05-17] MEDS: Multivitamin Liquid 15 ML UDC GTUBE SCH (09:20)
[2022-05-17] MEDS: carvediloL 6.25 MG TABLET PO SCH ×2 (09:20→16:31)
[2022-05-17] MEDS: Cholecalciferol (D-3) 1,000 UNIT (25MCG) TABLET PO SCH (09:20)
[2022-05-17] MEDS: Gabapentin 100 MG CAPSULE PO SCH ×3 (09:20→20:21)
[2022-05-17] MEDS: Aspirin 81 MG TAB.CHEW PO SCH (09:20)
[2022-05-17] MEDS: Cyanocobalamin (B-12) 1,000 MCG TABLET PO SCH (09:21)
[2022-05-17] MEDS: polyethylene glycoL 3350 17 GM POWD.PACK PO SCH (09:21)
[2022-05-17] MEDS: Sennosides 8.6 MG TABLET PO SCH ×2 (09:21→20:21)
[2022-05-17] MEDS: Nystatin Cream 15 GM TUBE TP SCH ×3 (09:22→20:22)
[2022-05-17] MEDS: Lidocaine 4% CREAM (LMX) 5 GM TP SCH ×3 (09:22→20:22)
[2022-05-17] MEDS: Desitin (Zinc Oxide) Max 57 GM TUBE TP SCH ×3 (09:22→20:22)
[2022-05-17] MEDS: Mirtazapine 15 MG TABLET PO SCH (20:21)
[2022-05-17] MEDS: ALPRAZolam 0.5 MG TABLET PO PRN (20:21)
[2022-05-18] MEDS: *HR* Enoxaparin 40 MG/0.4 ML SYRINGE SQ SCH (05:00)
[2022-05-18] MEDS: Simethicone 80 MG TAB.CHEW PO SCH ×3 (05:00→20:07)
[2022-05-18] MEDS: *HR* HYDROcodone/Acet 5/325 mg TABLET PO SCH ×3 (05:00→20:08)
[2022-05-18] MEDS: Levothyroxine 25 MCG TABLET PO SCH (05:01)
[2022-05-18] MEDS: Desitin (Zinc Oxide) Max 57 GM TUBE TP SCH ×3 (09:19→20:08)
[2022-05-18] MEDS: Sennosides 8.6 MG TABLET PO SCH ×2 (09:19→20:07)
[2022-05-18] MEDS: Multivitamin Liquid 15 ML UDC GTUBE SCH (09:19)
[2022-05-18] MEDS: Cholecalciferol (D-3) 1,000 UNIT (25MCG) TABLET PO SCH (09:19)
[2022-05-18] MEDS: Gabapentin 100 MG CAPSULE PO SCH ×3 (09:19→20:08)
[2022-05-18] MEDS: Lidocaine 4% CREAM (LMX) 5 GM TP SCH ×3 (09:19→20:08)
[2022-05-18] MEDS: Cyanocobalamin (B-12) 1,000 MCG TABLET PO SCH (09:19)
[2022-05-18] MEDS: carvediloL 6.25 MG TABLET PO SCH ×2 (09:19→16:27)
[2022-05-18] MEDS: Aspirin 81 MG TAB.CHEW PO SCH (09:19)
[2022-05-18] MEDS: polyethylene glycoL 3350 17 GM POWD.PACK PO SCH (09:19)
[2022-05-18] MEDS: Nystatin Cream 15 GM TUBE TP SCH ×3 (09:19→20:08)
[2022-05-18] MEDS: Mirtazapine 15 MG TABLET PO SCH (20:07)
[2022-05-18] MEDS: ALPRAZolam 0.5 MG TABLET PO PRN (20:07)
[2022-05-19] MEDS: Simethicone 80 MG TAB.CHEW PO SCH ×3 (04:40→19:51)
[2022-05-19] MEDS: *HR* Enoxaparin 40 MG/0.4 ML SYRINGE SQ SCH (04:40)
[2022-05-19] MEDS: Levothyroxine 25 MCG TABLET PO SCH (04:41)
[2022-05-19] MEDS: *HR* HYDROcodone/Acet 5/325 mg TABLET PO SCH ×3 (04:41→19:51)
[2022-05-19 05:10] LABS: Hematocrit 30.4 % (35.3-44.9); Hemoglobin 8.8 g/dL (11.5-15.4); Mean Corpuscular HGB Conc 28.9 g/dL (31.6-35.5); Mean Corpuscular Volume 100.3 fL (83.0-100.0); Mean Platelet Volume 8.7 fL (9.4-12.4); Platelet Count 544 K/mcL (140-400); Red Blood Count 3.03 M/mcL (3.82-4.97); Red Cell Distribution Width 16.6 % (11.5-14.5); White Blood Count 10.1 K/mcL (4.3-11.1)
[2022-05-19 05:24] LABS: BUN/Creatinine Ratio 39 (6-26); Blood Urea Nitrogen 14 mg/dL (8-23); Calcium 8.8 mg/dL (8.6-10.3); Carbon Dioxide 25 mEq/L (23-29); Chloride 107 mEq/L (98-107); Glucose 87 mg/dL (70-105); Magnesium 1.8 mg/dL (1.6-2.6); Osmolality,Calculated 286 (280-300); Potassium 3.4 mEq/L (3.5-5.1); Sodium 138 mEq/L (136-145)
[2022-05-19 07:55] VITALS: RESP 16
[2022-05-19] MEDS ORDERED: Multivit/Ca/Min/Fe/FA 1 TAB TABLET PO SCH (09:00)
[2022-05-19] MEDS ORDERED: Potassium Chloride Elixir 20 MEQ/15 ML UDC PO ONE (09:12)
[2022-05-19] MEDS: Cholecalciferol (D-3) 1,000 UNIT (25MCG) TABLET PO SCH (10:11)
[2022-05-19] MEDS: Aspirin 81 MG TAB.CHEW PO SCH (10:11)
[2022-05-19] MEDS: Gabapentin 100 MG CAPSULE PO SCH ×3 (10:11→19:52)
[2022-05-19] MEDS: carvediloL 6.25 MG TABLET PO SCH ×2 (10:11→17:34)
[2022-05-19] MEDS: Sennosides 8.6 MG TABLET PO SCH ×2 (10:13→19:51)
[2022-05-19] MEDS: polyethylene glycoL 3350 17 GM POWD.PACK PO SCH ×2 (10:13→10:42)
[2022-05-19] MEDS: Cyanocobalamin (B-12) 1,000 MCG TABLET PO SCH (10:13)
[2022-05-19] MEDS: Lidocaine 4% CREAM (LMX) 5 GM TP SCH ×3 (10:14→19:59)
[2022-05-19] MEDS: Nystatin Cream 15 GM TUBE TP SCH ×3 (10:14→19:59)
[2022-05-19] MEDS: Desitin (Zinc Oxide) Max 57 GM TUBE TP SCH ×3 (10:14→19:59)
[2022-05-19] MEDS: ALPRAZolam 0.5 MG TABLET PO PRN ×2 (13:18→19:51)
[2022-05-19 19:21] VITALS: BP 113/71; PULSE 99; TEMP 97.9; O2SAT 97
[2022-05-19] MEDS: Mirtazapine 15 MG TABLET PO SCH (19:52)
== END 2022-05-19 23:59 | disposition other institution (70) | DRG 56 ==
LOC: INPGRE 20:25
PROVIDERS: ADMIT Family Medicine; ATTEND Family Medicine